=== PATIENT | female | born 1955 | race African-American/Black ===

== ENCOUNTER 2019-04-26 12:40 | Inpatient (IN) ==
[2019-04-26] MEDS ORDERED: 0.9 % Sodium Chloride 500 ML IVC ONE (12:52)
--- NOTE | 2019-04-26 12:59 | Emergency Department Note ---
Disposition Clinical Impression: Acute renal insufficiency, Dehydration, Hypokalemia, WENDY (acute kidney injury) Failure to thrive Qualifiers: Failure to thrive age range: in adult Qualified Code(s): R62.7 - Adult failure to thrive Malnutrition Qualifiers: Malnutrition type: unspecified type Qualified Code(s): E46 - Unspecified protein-calorie malnutrition Disposition: Admitted As Inpatient Condition: Fair Forms: ED Satisfaction Letter, Work/School Release Time of Disposition: 15:57 General Adult HPI - General Chief complaint: ED General Medical Stated complaint: Hypotension, malnutrition Time Seen by Provider: 04/26/19 12:44 Source: patient, family, EMS Mode of arrival: EMS Limitations: physical limitation Nursing Notes Reviewed: Yes Vital Signs Reviewed: Yes - History of Present Illness HPI Narrative: 64-year-old female with a past medical history of breast cancer status post post mastectomy, as well as head and neck cancer treated with surgery, chemotherapy, radiation. Patient was seen at the cancer center today for a 5-6 week follow-up and was found to be severely malnourished with an elevated heart rate and decreased blood pressure. Patient was sent here for further evaluation and t reatment. Patient states that nothing hurts her at this time. She is complaining of feeling very cold, and states that she eats probably twice a day. at bedside reports that he gives her TPN through her feeding tube only when she asks for it. Patient states that she has probably not been able to stand for several months now. She is denying fevers chills chest pain shortness of breath abdominal pain nausea vomiting diarrhea constipation. Pain Scale: 0 - Related Data Home Medications Medication Instructions Recorded Confirmed Folic Acid 1 mg PO DAILY 09/18/18 04/26/19 LORazepam [Ativan] 0.5 mg PO AD PRN 09/18/18 04/26/19 Previous Rx's Medication Instructions Recorded Anastrozole [Arimidex] 1 mg PO DAILY #90 tablet 02/15/18 Vitamin E (Dl,Tocopheryl Acet) 400 unit PO BID #60 cap 03/15/18 [Vitamin E] Omeprazole [PriLOSEC] 20 mg PO DAILY #30 capsule. 03/01/19 Levothyroxine [Synthroid] 75 mcg PO DAILY #30 tablet 03/07/19 Allergies Allergy/AdvReac Type Severity Reaction Status Date / Time No Known Allergies Allergy Verified 04/26/19 11:39 Review of Systems: In addition to that documented in the HPI above, the additional ROS was obtained: Constitutional: Denies fevers or chills Eyes: Denies vision changes ENMT: Denies sore throat CV: Denies chest pain Resp: Denies SOB GI: Denies vomiting or diarrhea : Denies painful urination MSK: Denies recent trauma Skin: Denies new rashes Neuro: Denies new numbness or tingling or weakness Endocrine: Reports weight loss Heme: Denies bleeding disorders Past Medical History - Past Medical History Attestation: Yes The following information was validated with the patient. Medical history: Reports: cancer Surgical history: Reports: no surgical history Psychiatric history: Reports: anxiety - Social History Smoking Status: Current every day smoker Smokeless Tobacco Status: No Alcohol use: Reports: heavy Drug use: Reports: none Physical Exam General: A&O x 3. No acute distress. Thin, cachetic female. Head: atraumatic, normocephalic. ENT: No conjunctival injection, no scleral icterus. PERRLA. EOMI. Oropharynx non- erythematous. mucous membranes moist. Neuro: No focal deficits, no speech deficit, no facial droop, mentating well. BUE/BLE Str 5/5. Pulm: Lungs CTAB A/P. No wheezes, rales, ronchi. Cardio: Tachycardia. Chest not tender to palpation. Abd: Soft, non-distended. Normoactive bowel sounds. Non-tender to palpation. No guarding. Non rigid. Extremities: Radial pulses 2+ rosa, dorsalis pedis/posterior tibialis 2+ rosa. No LE edema. No cyanosis, clubbing. Skin: warm, dry, intact. No rashes. Psych: Appropriate mood and affect. Answers questions appropriately. Cooperative with exam. - General Limitations: physical limitation General appearance: alert Course Vital Signs Temperature 96.8 F L 04/26/19 12:43 Pulse Rate 98 04/26/19 12:43 Respiratory Rate 16 04/26/19 12:43 Blood Pressure 81/60 04/26/19 12:43 O2 Sat by Pulse Oximetry 100 04/26/19 12:43 Temperature 98.5 F 04/26/19 16:18 Pulse Rate 86 04/26/19 17:45 Respiratory Rate 18 04/26/19 17:45 Blood Pressure 77/57 04/26/19 17:45 O2 Sat by Pulse Oximetry 100 04/26/19 17:45 Oxygen Delivery Oxygen Delivery Room Air Medical Decision Making - MDM Narrative Medical decision making narrative: 64-year-old female presents with significant comorbidities including malnut rition and cancer treatment with concern for electrolyte abnormalities as well as cardiac risk factors. Basic lab work to include CBC, BMP, phosphorus, magnesium, liver function panel as well as EKG, chest x-ray, urinalysis will be ordered. Concern exists for severe malnutrition as well as cardiac arrhythmia. Lab work revealed hypokalemia, elevated phosphorus at 5.1, creatinine was elevated at 2.4 which is a significant increase over her baseline and was thought to be related to dehydration, EKG concerning for sinus tachycardia, it was thought the patient would benefit from further inpatient treatment and workup as well as a social work consult. The patient was given potassium through her IV while in the department as well as IV fluids. Patient was given a banana bag while in the department with concern for her alcoholism. Patient was admitted to the hospitalist Dr. Summers who agreed to accept the patient to his service. Results of the workup including any imaging and/or labwork was shared with the family at bedside. Family was given an opportunity to ask questions at bedside and all of their concerns were addressed. Family verbalized understanding and agreement with plan of care. Pt remained stable while in the department. - Medical Records Medical records reviewed: Yes I reviewed the patient's medical records. - Lab Data Lab results reviewed: Yes I reviewed the patient's lab results. Result diagrams: 04/26/19 14:03 04/26/19 14:03 Lab Results 04/26/19 04/26/19 Range/Units 14:03 14:03 WBC 6.7 D (4.3-11.1) K/mcL RBC 2.91 L (3.82-4.97) M/mcL Hgb 10.7 L (11.5-15.4) g/dL Hct 31.8 L (35.3-44.9) % MCV 109.3 H (83.0-100.0) fL MCH 36.8 H (28.0-33.3) pg MCHC 33.6 (31.6-35.5) g/dL RDW 13.2 (11.5-14.5) % Plt Count 210 (140-400) K/mcL MPV 10.8 (9.4-12.4) fL Immature Gran % 0.3 (0-4) % Seg Neutrophils % 80.4 % Lymphocytes % 13.0 % Monocytes % 5.7 % Eosinophils % 0.3 % Basophils % 0.3 % Neutrophils # 5.4 (1.6-8.9) K/mcL Lymphocytes # 0.9 (0.6-4.6) K/mcL Monocytes # 0.4 (0.0-1.3) K/mcL Eosinophils # 0.0 (0.0-0.6) K/mcL Basophils # 0.0 (0.0-0.2) K/mcL Sodium 133 L (136-145) mEq/L Potassium 3.1 L (3.5-5.1) mEq/L Chloride 98 (98-107) mEq/L Carbon Dioxide 21 L (23-29) mEq/L BUN 44 H (8-23) mg/dL Creatinine 2.46 H (0.60-1.20) mg/dL Est GFR ( Amer) 24 L (> 60) Est GFR (Non-Af Amer) 20 L (> 60) BUN/Creatinine Ratio 18 (6-26) Glucose 83 (70-105) mg/dL Calculated Osmolality 286 (280-300) Calcium 7.9 L (8.6-10.3) mg/dL Phosphorus 5.5 H (2.7-4.5) mg/dL Magnesium 1.8 (1.6-2.6) mg/dL Total Bilirubin 0.6 (0.3-1.0) mg/dL AST 22 (13-39) Units/L ALT 13 (7-52) Units/L Alkaline Phosphatase 76 (34-104) Units/L Troponin I < 0.03 (< 0.04) ng/mL Serum Total Protein 5.3 L (6.4-8.9) g/dL Albumin 2.1 L (3.5-5.7) g/dL Globulin 3.2 (2.4-3.5) g/dL Albumin/Globulin Ratio 0.7 L (1.1-2.2) - Radiology Data Radiology results reviewed: Yes I reviewed the patient's radiology results. Chest X-Ray 04/26/19 12:48 IMPRESSION: 1. No acute cardiopulmonary disease. 2. COPD. D/ / Irene Fuller MD / Irene Fuller MD Interpreting Provider: Irene Fuller MD - EKG Data EKG #1 EKG attestation: Yes I reviewed and interpreted this EKG. EKG results narrative: Heart rate 100, rhythm sinus tachycardia, axis normal. VT 138, QRS 73, QTC 42. No evidence of ST elevation or depression when compared with previous study dated 06/30/2000 the new study differs in rate and amplitude of QRS complexes. Attestation Statement - Attestation Attestation: I, Elmer Duque DO, examined this patient [id number] and my medical decision-making was reviewed with Dr. Caren Mckinley, Resident Physician. I agree with the documented findings, disposition and treatment plan as described except to the extent set forth below. I personally supervised and was present for the panda/critical portions of the procedures completed by the resident doc umented below. Please see my progress notes for details.
--- NOTE | 2019-04-26 13:06 | Emergency Department Note ---
Disposition Clinical Impression: Acute renal insufficiency, Dehydration, Failure to thrive Disposition: Admitted As Inpatient Condition: Serious Forms: ED Satisfaction Letter, Work/School Release Time of Disposition: 15:56 General Adult HPI - General Stated complaint: Hypotension, malnutrition Time Seen by Provider: 04/26/19 12:44 Source: patient, family, EMS Mode of arrival: EMS Limitations: physical limitation - History of Present Illness Pain Scale: 0 - Related Data Home Medications Medication Instructions Recorded Confirmed Folic Acid 1 mg PO DAILY 09/18/18 04/26/19 LORazepam [Ativan] 0.5 mg PO AD PRN 09/18/18 04/26/19 Previous Rx's Medication Instructions Recorded Anastrozole [Arimidex] 1 mg PO DAILY #90 tablet 02/15/18 Vitamin E (Dl,Tocopheryl Acet) 400 unit PO BID #60 cap 03/15/18 [Vitamin E] Omeprazole [PriLOSEC] 20 mg PO DAILY #30 capsule. 03/01/19 Levothyroxine [Synthroid] 75 mcg PO DAILY #30 tablet 03/07/19 Allergies Allergy/AdvReac Type Severity Reaction Status Date / Time No Known Allergies Allergy Verified 04/26/19 11:39 Past Medical History - Past Medical History Medical history: Reports: cancer Surgical history: Reports: no surgical history Psychiatric history: Reports: anxiety - Social History Smoking Status: Current every day smoker Smokeless Tobacco Status: No Alcohol use: Reports: heavy Drug use: Reports: none Physical Exam - General Limitations: physical limitation General appearance: alert Course Vital Signs Temperature 0 F L 04/26/19 12:43 Pulse Rate 98 04/26/19 12:43 Respiratory Rate 16 04/26/19 12:43 Blood Pressure 81/60 04/26/19 12:43 O2 Sat by Pulse Oximetry 100 04/26/19 12:43 Temperature 0 F L 04/26/19 12:43 Pulse Rate 88 04/26/19 13:43 Respiratory Rate 16 04/26/19 13:43 Blood Pressure 71/54 04/26/19 13:43 O2 Sat by Pulse Oximetry 100 04/26/19 13:43 Oxygen Delivery Oxygen Delivery Room Air Medical Decision Making - Lab Data Result diagrams: 04/26/19 14:03 04/26/19 14:03 Lab Results 04/26/19 04/26/19 Range/Units 14:03 14:03 WBC 6.7 D (4.3-11.1) K/mcL RBC 2.91 L (3.82-4.97) M/mcL Hgb 10.7 L (11.5-15.4) g/dL Hct 31.8 L (35.3-44.9) % MCV 109.3 H (83.0-100.0) fL MCH 36.8 H (28.0-33.3) pg MCHC 33.6 (31.6-35.5) g/dL RDW 13.2 (11.5-14.5) % Plt Count 210 (140-400) K/mcL MPV 10.8 (9.4-12.4) fL Immature Gran % 0.3 (0-4) % Seg Neutrophils % 80.4 % Lymphocytes % 13.0 % Monocytes % 5.7 % Eosinophils % 0.3 % Basophils % 0.3 % Neutrophils # 5.4 (1.6-8.9) K/mcL Lymphocytes # 0.9 (0.6-4.6) K/mcL Monocytes # 0.4 (0.0-1.3) K/mcL Eosinophils # 0.0 (0.0-0.6) K/mcL Basophils # 0.0 (0.0-0.2) K/mcL Sodium 133 L (136-145) mEq/L Potassium 3.1 L (3.5-5.1) mEq/L Chloride 98 (98-107) mEq/L Carbon Dioxide 21 L (23-29) mEq/L BUN 44 H (8-23) mg/dL Creatinine 2.46 H (0.60-1.20) mg/dL Est GFR ( Amer) 24 L (> 60) Est GFR (Non-Af Amer) 20 L (> 60) BUN/Creatinine Ratio 18 (6-26) Glucose 83 (70-105) mg/dL Calculated Osmolality 286 (280-300) Calcium 7.9 L (8.6-10.3) mg/dL Phosphorus 5.5 H (2.7-4.5) mg/dL Magnesium 1.8 (1.6-2.6) mg/dL Total Bilirubin 0.6 (0.3-1.0) mg/dL AST 22 (13-39) Units/L ALT 13 (7-52) Units/L Alkaline Phosphatase 76 (34-104) Units/L Troponin I < 0.03 (< 0.04) ng/mL Serum Total Protein 5.3 L (6.4-8.9) g/dL Albumin 2.1 L (3.5-5.7) g/dL Globulin 3.2 (2.4-3.5) g/dL Albumin/Globulin Ratio 0.7 L (1.1-2.2) Attestation Statement - Attestation Attestation: I, Elmer Duque DO, examined this patient [id number] and my medical decision-making was reviewed with Dr. Caren Mckinley, Resident Physician. I agree with the documented findings, disposition and treatment plan as described except to the extent set forth below. I personally supervised and was present for the panda/critical portions of the procedures completed by the resident documented below. Please see my progress notes for details. 64-year-old female presents emergency room from the [facility] for evaluation of generalized malaise, fair to thrive, malnourishment. Patient has no neck and head and breast cancer. She received treatment. She has been cancer free for over a year at this time. She does have a PEG tube in place secondary to bleeding related issues after the cancer treatment. She currently is denying any chest pain shortness of breath fevers or chills. She does not have any nausea vomiting or diarrhea. Denies any headache or vision change. She does n ot receive TPN or feeding tube supplementation unless she asks for it. Patient does not typically eat very much throughout the day. Patient was seen at the cancer Center today for a follow-up evaluation. They were concerned about her decline in weight and recommended she come to the emergency room. Patient is otherwise clinically stable. Her lungs are clear her heart is regular. Her vital signs are reviewed. She is very thin in full. Mucous membranes are dry. Head is atraumatic. Pupils are round reactive. Lungs are clear heart is regular. Abdomen is soft. G-tube is in place and showing no acute signs of malposition or trauma. Extremities otherwise normal. Screening evaluation will be completed. Fluids will be given. Chest x-ray will be ordered. Disposition to be determined once full workup and treatment course I been established. Patient will be monitored here in the emergency department to this treatment course is completed. EKG is reviewed by myself in documented by the resident physician. See detailed documentation of the physical exam, medical intervention, decision-making and disposition in the resident physician's note. No critical care applied the patient's treatment course at this time. 1500 Patient is found to have acute renal insufficiency as well as hypokalemia. This is all consistent with nutritional related issues. Because the generalized malaise, as well as her decline in health, the patient will be admitted for psychotherapist social worker evaluation, possible placement, possible progression of care. Patient is aware of this and will be admitted at this time. Hospitalist has been paged [phone] Patient was discussed and reviewed with the hospitalist Dr. Summers. No other recommendations or concerns at this time. Attempts were made to discuss CODE STATUS with the patient. The family does not quite understand exactly what or asking this time. They continued to express that she is only here for fluids and nutrition. They did not understand was asking by the patient's heart were to stop or she were to stop breathing what type of intervention. Advised. Patient will have further discussion with this in the hospital setting after the remainder of the treatment course has been completed. Appears to be profound dehydration, acute renal insufficiency and failure to thrive. Patient is otherwise stable at the time of admission. We will monitor here in emergency department until the admission process is completed
[2019-04-26 14:31] LABS: Basophils % 0.3 %; Eosinophils % 0.3 %; Hematocrit 31.8 % (35.3-44.9); Hemoglobin 10.7 g/dL (11.5-15.4); Immature Granulocytes % 0.3 % (0-4); Lymphocytes # 0.9 K/mcL (0.6-4.6); Mean Corpuscular HGB Conc 33.6 g/dL (31.6-35.5); Mean Corpuscular Hemoglobin 36.8 pg (28.0-33.3); Mean Corpuscular Volume 109.3 fL (83.0-100.0); Mean Platelet Volume 10.8 fL (9.4-12.4); Monocytes # 0.4 K/mcL (0.0-1.3); Monocytes % 5.7 %; Neutrophils # 5.4 K/mcL (1.6-8.9); Platelet Count 210 K/mcL (140-400); Red Blood Count 2.91 M/mcL (3.82-4.97); Red Cell Distribution Width 13.2 % (11.5-14.5); Segmented Neutrophils % 80.4 %; White Blood Count 6.7 K/mcL (4.3-11.1)
[2019-04-26 14:57] LABS: Alanine Aminotransferase 13 Units/L (7-52); Albumin 2.1 g/dL (3.5-5.7); Albumin/Globulin Ratio 0.7 (1.1-2.2); Alkaline Phosphatase 76 Units/L (34-104); Aspartate Amino Transferase 22 Units/L (13-39); BUN/Creatinine Ratio 18 (6-26); Bilirubin,Total 0.6 mg/dL (0.3-1.0); Blood Urea Nitrogen 44 mg/dL (8-23); Calcium 7.9 mg/dL (8.6-10.3); Carbon Dioxide 21 mEq/L (23-29); Chloride 98 mEq/L (98-107); Globulin 3.2 g/dL (2.4-3.5); Glucose 83 mg/dL (70-105); Magnesium 1.8 mg/dL (1.6-2.6); Osmolality,Calculated 286 (280-300); Phosphorous 5.5 mg/dL (2.7-4.5); Potassium 3.1 mEq/L (3.5-5.1); Sodium 133 mEq/L (136-145); Total Protein 5.3 g/dL (6.4-8.9); Troponin I < 0.03 ng/mL (< 0.04); eGFR For African Americans 24 (> 60); eGFR For Non-African Americans 20 (> 60)
[2019-04-26] MEDS ORDERED: Potassium Chloride 40 MEQ, Lidocaine 1% 2 ML in D5% in Water 500 ML IVPB ONE (14:59)
[2019-04-26] MEDS ORDERED: 0.9 % Sodium Chloride 1,000 ML IVC ONE (15:00)
[2019-04-26] MEDS ORDERED: Thiamine (B-1) 100 MG in D5% in Water 50 ML IVPB ONE (15:59)
[2019-04-26] MEDS ORDERED: Folic Acid 1 MG in D5% in Water 50 ML IVPB ONE (15:59)
[2019-04-26] MEDS ORDERED: Naloxone 0.4 MG/ML INJ IVP PRN (17:42)
--- NOTE | 2019-04-26 17:53 | Internal Med History&Physical ---
Date of Encounter: 04/26/19 Time of Encounter: 15:00 Internal Medicine - H&P: HPI Chief complaint: Weakness Admitted From: Home Plans for Post Hospital Care: Home History of present illness: Ms. Ribeiro is a 64 year old female with history of breast cancer status post mastectomy, head and neck cancer treated with surgery, chemotherapy and radiation. Last chemotherapy was more than a year ago who came in to the hosp ital with her due to generalized weakness that has been going on for more than 2 weeks As per the . Patient was put historian and most of the history was obtained from her . Patient had poor oral intake for a few months with no identifiable cause or reason. Patient denied chest pain, shortness of breath, fever, chills, night sweats, abdominal pain, urinary or bowel changes. She had no recent sick contact. She does not feel like she wants to eat. As per the , patient was hiding food on him. He used to "for her and she is to cover it with a Towel and hide it on him. Upon presentation, patient was hypotensive however she was afebrile. Her blood work was significant for hyponatremia, hypokalemia and acute kidney injury. She also has microcytic anemia. Patient was given IV fluids and was admitted to the floor for further management Past Med Surg Social Fam HX - Past Medical History Medical history: cancer Additional medical history: LARYNGEAL CANCER, BREAST CANCER. SMOKER. CANCER TREATMENT Psychiatric history: anxiety - Past Surgical History Surgical History: no surgical history Additional surgical history: LEFT BREAST CYST EXCISION. G-TUBE. Bilateral Mastectomy - Social History Smoking Status: Current every day smoker Smokeless Tobacco Status: No Alcohol use: heavy Drug use: none - Additional Family History Additional family history: Patient has no family history of cancer or malignancies. Internal Medicine - H&P: Meds Anastrozole [Arimidex] 1 mg PO DAILY #90 tablet 02/15/18 [Rx] Vitamin E (Dl,Tocopheryl Acet) [Vitamin E] 400 unit PO BID #60 cap 03/15/18 [Rx] Folic Acid 1 mg PO DAILY 09/18/18 [History] LORazepam [Ativan] 0.5 mg PO AD PRN 09/18/18 [History] Omeprazole [PriLOSEC] 20 mg PO DAILY #30 capsule. 03/01/19 [Rx] Levothyroxine [Synthroid] 75 mcg PO DAILY #30 tablet 03/07/19 [Rx] Allergy/AdvReac Type Severity Reaction Status Date / Time No Known Allergies Allergy Verified 04/26/19 11:39 All Systems PM: A 10-system review of systems was performed and is negative for pertinent fi ndings except as documented above in the HPI. - Constitutional Vitals: Temp Pulse Resp BP Pulse Ox 98.5 F 86 18 77/57 100 04/26/19 16:18 04/26/19 17:45 04/26/19 17:45 04/26/19 17:45 04/26/19 17:45 General appearance: Present: cachectic, A&O X 3 Exam: Head: Atraumatic, normal inspection, normocephalic. Eye: EOMI, PERRLA, no scleral icterus noted. ENT: Mucous membranes moist. No odontogenic infection noted. Large amount of oral secretions noted. Neck: Normal inspection, no meningismus. Respiratory: No respiratory distress, rhonchi, or wheezes noted. Cardiovascular: Regular rate and regular rhythm, S1 and S2 audible. No murmurs, rubs, or gallops. GI: Soft, nondistended, normal bowel sounds. Extremities:No joint swelling, pedal edema, or tenderness noted. Neurological: Alert, oriented 3, no focal deficits. Psychiatric: normal affect, normal mood. Skin: Dry,. Normal color. No rashes. Internal Med - H&P Results - Labs CBC & Chem 7: 04/26/19 14:03 04/26/19 14:03 Labs: Short CBC 04/26/19 Range/Units 14:03 WBC 6.7 D (4.3-11.1) K/mcL Hgb 10.7 L (11.5-15.4) g/dL Hct 31.8 L (35.3-44.9) % Plt Count 210 (140-400) K/mcL Neutrophils # 5.4 (1.6-8.9) K/mcL BMP 04/26/19 14:03 Sodium 133 L Potassium 3.1 L Chloride 98 Carbon Dioxide 21 L BUN 44 H Creatinine 2.46 H Glucose 83 Calcium 7.9 L Cardiac Enzymes 04/26/19 Range/Units 14:03 Troponin I < 0.03 (< 0.04) ng/mL Liver Function 04/26/19 Range/Units 14:03 Total Bilirubin 0.6 (0.3-1.0) mg/dL AST 22 (13-39) Units/L ALT 13 (7-52) Units/L Alkaline Phosphatase 76 (34-104) Units/L Albumin 2.1 L (3.5-5.7) g/dL - Impressions ITS Impressions Chest X-Ray 04/26/19 12:48 IMPRESSION: 1. No acute cardiopulmonary disease. 2. COPD. D/ / Irene Fuller MD / Irene Fuller MD Interpreting Provider: Ireen Fuller MD - Diagnostic Studies Chest x-ray Status: image reviewed by me (Normal findings) - Assessment and Plan (1) WENDY (acute kidney injury) Current Visit: Yes Status: Acute (2) Dehydration Current Visit: Yes Status: Acute (3) Failure to thrive Current Visit: Yes Status: Acute Qualifiers: Failure to thrive age range: in adult Qualified Code(s): R62.7 - Adult failure to thrive (4) Malnutrition Current Visit: Yes Status: Acute Qualifiers: Malnutrition type: protein-calorie malnutrition Protein-calorie malnutrition severity: unspecified severity Qualified Code(s): E46 - Unspecified protein-calorie malnutrition (5) Hypokalemia Current Visit: Yes Status: Acute (6) Anemia Current Visit: No Status: Acute Qualifiers: Anemia type: unspecified type Qualified Code(s): D64.9 - Anemia, unspecified (7) Bilateral breast cancer Current Visit: No Status: Acute Qualifiers: Breast location: unspecified site of breast Estrogen receptor status: positive Patient sex: female Qualified Code(s): C50.911 - Malignant neoplasm of unspecified site of right female breast; C50.912 - Malignant neoplasm of unspecified site of left female breast; Z17.0 - Estrogen receptor positive status [ER+] (8) Oropharyngeal cancer Current Visit: No Status: Acute - Summary of Assessment and Plan Summary of Assessment and Plan: 64-year-old female with history of breast cancer status post mastectomy and oropharynx and cancer status post surgery, chemotherapy who was came into the hospital with her due to generalized weakness. As per the patient had poor oral intake for few weeks. Her symptoms are managed as following Failure to thrive: - Patient does not have the appetite eat. - Chest x-ray is negative, UA is ordered. Patient is afebrile and has no le ukocytosis. - Her blood pressure was low at presentation, improved with IV fluids. - We will start her on Ringer lactate at rate of 125 mL, encourage oral intake. - Ordered BMP, by mouth 4, magnesium level for tomorrow. WENDY: - Cr bL ~ 1, TODAY IS 2.4. - BMP for tomorrow, monitor kidneys function, monitor input and output, continue IV fluids Hyponatremia: - Secondary to above, management as per above Hypokalemia: - Secondary to above, patient received oral replacement Macrocytic anemia: - We will check folic acid, TSH, vitamin B12 and ferritin level. History of breast cancer status post mastectomy: Continue home medication History of oropharyngeal cancer status post chemotherapy Full code Regular diet Heparin subcutaneous - Time Spent With Patient Total time spent is greater than 50% in coordination of care (as documented) at patient's floor/unit and/or counseling patient:
[2019-04-26 18:52] LABS: Thyroid Stimulating Hormone 22.783 mcIU/mL (0.340-5.600)
[2019-04-26] MEDS: *HR* Heparin 5,000 UNIT/ML VIAL SQ SCH (22:09)
[2019-04-26] MEDS: Ringers Solution, Lactated 1,000 ML IVC SCH (22:10)
[2019-04-27 02:26] LABS: Calcium 7.5 mg/dL (8.6-10.3); Magnesium 2.3 mg/dL (1.6-2.6); Phosphorous 4.4 mg/dL (2.7-4.5); Potassium 3.6 mEq/L (3.5-5.1)
[2019-04-27] MEDS: *HR* Heparin 5,000 UNIT/ML VIAL SQ SCH ×2 (06:22→18:14)
[2019-04-27] MEDS: Ringers Solution, Lactated 1,000 ML IVC SCH (06:23)
[2019-04-27] MEDS: 0.9 % Sodium Chloride 1,000 ML IVC SCH ×3 (09:24→23:03)
[2019-04-27] MEDS ORDERED: Folic Acid 1 MG in D5% in Water 50 ML IVPB SCH (11:30)
[2019-04-27] MEDS ORDERED: *HR* LORazepam 0.5 MG TABLET PO PRN (13:03)
--- NOTE | 2019-04-27 13:06 | Internal Med Progress Note ---
Hospitalist Progress Note - Encounter Date of Encounter: 04/27/19 Time of Encounter: 10:00 - Subjective Interval History: No major events overnight. Patient was seen this a.m. sHe denied fever, chills or night sweats. SHe has no nausea, vomiting or abdominal pain. Patient denied chest pain, shortness of breath or palpitation. - Exam Vitals: Temp Pulse Resp BP Pulse Ox 98.2 F 75 16 78/58 99 04/27/19 11:18 04/27/19 11:18 04/27/19 11:18 04/27/19 11:18 04/27/19 11:18 Exam: Gen: She is alert and oriented, cachectic Head: Atraumatic, normal inspection, normocephalic. Eye: EOMI, PERRLA, no scleral icterus noted. ENT: Mucous membranes moist. No odontogenic infection noted. Large amount of oral secretions noted. Neck: Normal inspection, no meningismus. Respiratory: No respiratory distress, rhonchi, or wheezes noted. Cardiovascular: Regular rate and regular rhythm, S1 and S2 audible. No murmurs, rubs, or gallops. GI: Soft, nondistended, normal bowel sounds. peg Tube in place. Extremities:No joint swelling, pedal edema, or tenderness noted. Neurological: Alert, oriented 3, no focal deficits. Psychiatric: normal affect, normal mood. Skin: Dry,. Normal color. No rashes. - Assessment and Plan (1) WENDY (acute kidney injury) Current Visit: Yes Status: Acute (2) Dehydration Current Visit: Yes Status: Acute (3) Failure to thrive Current Visit: Yes Status: Acute (4) Malnutrition Current Visit: Yes Status: Acute (5) Hypokalemia Current Visit: Yes Status: Resolved (6) Anemia Current Visit: Yes Status: Acute (7) Bilateral breast cancer Current Visit: No Status: Chronic (8) Oropharyngeal cancer Current Visit: No Status: Chronic - Summary of Assessment and Plan Summary of Assessment and Plan: 64-year-old female with history of breast cancer status post mastectomy and oropharynx cancer status post surgery, chemotherapy, gastric PEG tube, hypothyroidism who was came into the hospital with her due to generalized weakness. As per the patient had poor oral intake for few weeks. Her symptoms are managed as following Failure to thrive: - Patient does not have the appetite eat. - Chest x-ray is negative, UA is ordered. Patient is afebrile and has no leukocytosis. - Her blood pressure was low at presentation, improved with IV fluids. - continue NS on 125 mL, encourage oral intake. - Ordered BMP. - discussed with boat carpenter, will try intermittent PEG tube feeding. - If no improvement, we will consult palliative team. ETOH abuse: - Extension Course Coordinator discussed with oncology boat carpenter that patient used to drink 3 cups a vodka a day. - no signs of withdrawl. will monitor. - continue thiamine and folic acid. WENDY: - Cr bL ~ 1, today is 2.3. - ordered BMP for tomorrow, monitor kidneys function, bladder scan with 99 ml only, monitor input and output, continue IV fluids Hyponatremia: - Secondary to above, management as per above Hypokalemia: Resolved Hypothyroidism: - TSH is 22, on levothyroxine 75 mcg at home. Unsure about compliance. - We will increase her levothyroxine to 100 mcg daily. Macrocytic anemia: - Ferritin, b12 and folic acid are normal. - likely 2/2 hypothyroidism. History of breast cancer status post mastectomy: Continue home medication History of oropharyngeal cancer status post chemotherapy Full code Regular diet Heparin SC Disposition: BMAT 1, needs placement. will discuss with social service. I reviewed independently all laboratory workup, pertinent images including x- rays and CT scans. I also reviewed independently and EKGs and my findings are in the body of my assessment and plan. I ordered the laboratory workup and images myself. I discussed finding with patient's, their families, RN's and consultants involved in the care of the patient. - Time Spent with Patient Total time spent is greater than 50% in coordination of care (as documented) at patient's floor/unit and/or counseling patient: Plan of Care Discussed with: patient Internal Medicine: Result - Labs CBC & Chem 7: 04/26/19 14:03 04/27/19 01:50 Labs: Short CBC 04/26/19 Range/Units 14:03 WBC 6.7 D (4.3-11.1) K/mcL Hgb 10.7 L (11.5-15.4) g/dL Hct 31.8 L (35.3-44.9) % Plt Count 210 (140-400) K/mcL Neutrophils # 5.4 (1.6-8.9) K/mcL BMP 04/26/19 04/27/19 14:03 01:50 Sodium 133 L 132 L Potassium 3.1 L 3.6 Chloride 98 100 Carbon Dioxide 21 L 24 BUN 44 H 40 H Creatinine 2.46 H 2.31 H Glucose 83 98 Calcium 7.9 L 7.5 L Cardiac Enzymes 04/26/19 Range/Units 14:03 Troponin I < 0.03 (< 0.04) ng/mL Liver Function 04/26/19 Range/Units 14:03 Total Bilirubin 0.6 (0.3-1.0) mg/dL AST 22 (13-39) Units/L ALT 13 (7-52) Units/L Alkaline Phosphatase 76 (34-104) Units/L Albumin 2.1 L (3.5-5.7) g/dL - Impressions Impressions Chest X-Ray 04/26/19 12:48 IMPRESSION: 1. No acute cardiopulmonary disease. 2. COPD. D/ / Irene Fuller MD / Irene Fuller MD Interpreting Provider: Irene Fuller MD Consult Discharge Plan - Plan Referrals: NONE,PCP [Primary Care Provider] - (3) Failure to thrive Qualifiers: Failure to thrive age range: in adult Qualified Code(s): R62.7 - Adult failure to thrive (4) Malnutrition Qualifiers: Malnutrition type: unspecified type Qualified Code(s): E46 - Unspecified protein-calorie malnutrition (6) Anemia Qualifiers: Anemia type: unspecified type Qualified Code(s): D64.9 - Anemia, unspecified (7) Bilateral breast cancer Qualifiers: Qualified Code(s): C50.911 - Malignant neoplasm of unspecified site of right female breast
[2019-04-27] MEDS: Thiamine (B-1) 100 MG in D5% in Water 50 ML IVPB SCH (13:07)
[2019-04-27] MEDS: Anastrozole 1 MG TABLET PO SCH (13:36)
[2019-04-27] MEDS: Vitamin E 200 UNIT (90MG) CAPSULE PO SCH (20:32)
[2019-04-27] MEDS ORDERED: *HR* LORazepam 2 MG/ML VIAL IVP PRN ×3 (20:39)
[2019-04-28] MEDS: *HR* Heparin 5,000 UNIT/ML VIAL SQ SCH ×2 (06:03→17:16)
[2019-04-28] MEDS: 0.9 % Sodium Chloride 1,000 ML IVC SCH ×4 (06:07→23:00)
[2019-04-28] MEDS ORDERED: Levothyroxine 25 MCG TABLET PO SCH (06:30)
[2019-04-28 07:28] LABS: Hematocrit 27.4 % (35.3-44.9); Hemoglobin 9.4 g/dL (11.5-15.4); Mean Corpuscular HGB Conc 34.3 g/dL (31.6-35.5); Mean Corpuscular Hemoglobin 38.4 pg (28.0-33.3); Mean Corpuscular Volume 111.8 fL (83.0-100.0); Mean Platelet Volume 10.6 fL (9.4-12.4); Platelet Count 160 K/mcL (140-400); Red Blood Count 2.45 M/mcL (3.82-4.97); Red Cell Distribution Width 13.2 % (11.5-14.5)
[2019-04-28 07:47] LABS: Calcium 7.3 mg/dL (8.6-10.3); Potassium 2.9 mEq/L (3.5-5.1)
[2019-04-28] MEDS ORDERED: Potassium Chloride 40 MEQ, Lidocaine 1% 2 ML in D5% in Water 500 ML IVPB ONE (08:12)
[2019-04-28] MEDS: Thiamine (B-1) 100 MG in D5% in Water 50 ML IVPB SCH (08:23)
[2019-04-28] MEDS: Vitamin E 200 UNIT (90MG) CAPSULE PO SCH ×3 (08:27→20:35)
[2019-04-28] MEDS: Anastrozole 1 MG TABLET PO SCH ×2 (08:27→09:51)
[2019-04-28] MEDS: Folic Acid 1 MG in D5% in Water 50 ML IVPB SCH (09:45)
--- NOTE | 2019-04-28 13:35 | Internal Med Progress Note ---
Hospitalist Progress Note - Encounter Date of Encounter: 04/28/19 Time of Encounter: 11:00 - Subjective Interval History: Patient was seen this a.m. She had nausea and vomited twice as per the nurse. She could not tolerate bolus of feeding tube and the nurse also reported diarrhea. Patient denied abdominal pain, fever or chills. - Exam Vitals: Temp Pulse Resp BP Pulse Ox 98.1 F 75 18 91/68 100 04/28/19 10:46 04/28/19 10:46 04/28/19 10:46 04/28/19 10:46 04/28/19 10:46 Exam: Gen: She is alert and oriented, cachectic, mild distress. Head: Atraumatic, normal inspection, normocephalic. Eye: EOMI, PERRLA, no scleral icterus noted. ENT: Mucous membranes moist. No odontogenic infection noted. Large amount of oral secretions noted. Neck: Normal inspection, no meningismus. Respiratory: No respiratory distress, rhonchi, or wheezes noted. Cardiovascular: Regular rate and regular rhythm, S1 and S2 audible. No murmurs, rubs, or gallops. GI: Soft, nondistended, normal bowel sounds. peg Tube in place. Extremities:No joint swelling, pedal edema, or tenderness noted. Neurological: Alert, oriented 3, no focal deficits. Psychiatric: normal affect, normal mood. Skin: Dry,. Normal color. No rashes. - Assessment and Plan (1) WENDY (acute kidney injury) Current Visit: Yes Status: Acute (2) Dehydration Current Visit: Yes Status: Acute (3) Failure to thrive Current Visit: Yes Status: Acute (4) Malnutrition Current Visit: Yes Status: Acute (5) Hypokalemia Current Visit: Yes Status: Acute (6) Anemia Current Visit: Yes Status: Acute (7) Bilateral breast cancer Current Visit: No Status: Chronic (8) Oropharyngeal cancer Current Visit: No Status: Chronic - Summary of Assessment and Plan Summary of Assessment and Plan: 64-year-old female with history of breast cancer status post mastectomy and oropharynx cancer status post surgery, chemotherapy, gastric PEG tube, hypothyroidism who was came into the hospital with her due to generalized weakness. As per the patient had poor oral intake for few weeks. Her symptoms are managed as following Failure to thrive: - Patient does not have the appetite eat. - Chest x-ray is negative, UA/UC ordered. Patient is afebrile and has no leukocytosis. - Her blood pressure was low at presentation, improved with IV fluids. - continue NS on 125 mL, encourage oral intake. - Ordered BMP. - Patient couldn't tolerate small boluses of tube feeds, will try small infusion of tube feeds 10ml/Hr and check residuals later on. D/W RN - palliative team consult placed to discuss GOC and possible Hospice option, discussed that with her . ETOH abuse: - General Passenger Agent discussed with oncology financial brokers that patient used to drink 3 cups a vodka a day. - no signs of withdrawl. scored 0 on CIWA - continue thiamine and folic acid. WENDY: improving - Cr bL ~ 1, today is 1.7. - ordered BMP for tomorrow, monitor kidneys function, bladder scan with 214 ml only, monitor input and output, continue IV fluids Hyponatremia: resolved Hypokalemia: Resolved Hypothyroidism: - TSH is 22, on levothyroxine 75 mcg at home. Unsure about compliance. - We will increase her levothyroxine to 100 mcg daily. Macrocytic anemia: - Ferritin, b12 and folic acid are normal. - likely 2/2 hypothyroidism. History of breast cancer status post mastectomy: Continue home medication History of oropharyngeal cancer status post chemotherapy Full code Regular diet Heparin SC Disposition: BMAT 1, needs placement. will discuss with social service. - Time Spent with Patient Total time spent is greater than 50% in coordination of care (as documented) at patient's floor/unit and/or counseling patient: Internal Medicine: Result - Labs CBC & Chem 7: 04/28/19 07:09 04/28/19 07:09 Labs: Short CBC 04/28/19 Range/Units 07:09 WBC 5.0 (4.3-11.1) K/mcL Hgb 9.4 L (11.5-15.4) g/dL Hct 27.4 L (35.3-44.9) % Plt Count 160 (140-400) K/mcL BMP 04/28/19 07:09 Sodium 135 L Potassium 2.9 L Chloride 108 H Carbon Dioxide 20 L BUN 34 H Creatinine 1.74 H Glucose 127 H Calcium 7.3 L Consult Discharge Plan - Plan Referrals: NONE,PCP [Primary Care Provider] - (3) Failure to thrive Qualifiers: Failure to thrive age range: in adult Qualified Code(s): R62.7 - Adult failure to thrive (4) Malnutrition Qualifiers: Malnutrition type: unspecified type Qualified Code(s): E46 - Unspecified protein-calorie malnutrition (6) Anemia Qualifiers: Anemia type: unspecified type Qualified Code(s): D64.9 - Anemia, unspecified (7) Bilateral breast cancer Qualifiers: Qualified Code(s): C50.911 - Malignant neoplasm of unspecified site of right female breast
[2019-04-28 14:08] LABS: Bilirubin,Urine Small (Negative); Blood,Urine Negative (Negative); Clarity,Urine Clear (Clear); Color,Urine Yellow (Yellow); Glucose,Urine (UA) Normal (Normal); Ketones,Urine Negative (Negative); Leukocyte Esterase,Urine Negative (Negative); Nitrite,Urine Negative (Negative); PH,Urine 5.5 pH Units (5.0-8.0); Protein,Urine Negative (Neg-Trace); Specific Gravity,Urine 1.014 (1.010-1.025); Urobilinogen,Urine Normal (Normal)
--- NOTE | 2019-04-28 18:25 | Electrocardiograph Report ---
[facility] Test Date: 2019-04-26 Pat Name: Ashley Ribeiro Department: EXAM23 Room: 2N08 Gender: F Brazing Furnace Feeder: : [id number] Requested By: Caren Mckinley Order Number: [id number] Reading MD: Dylan Neumann Measurements Intervals [place] Rate: 100 P: 73 DC: 138 QRS: 59 QRSD: 73 T: QT: 373 QTc: 482 Interpretive Statements Sinus tachycardia Abnormal lateral Q waves Anterior infarct, old Electronically Signed On 04-28-2019 18:23:44 EDT by Dylan Neumann
[2019-04-28] MEDS: Ondansetron 4 MG/2 ML VIAL IVP PRN (20:34)
[2019-04-29 04:14] LABS: Calcium 7.2 mg/dL (8.6-10.3); Magnesium 1.8 mg/dL (1.6-2.6)
[2019-04-29] MEDS: 0.9 % Sodium Chloride 1,000 ML IVC SCH (06:18)
[2019-04-29] MEDS: *HR* Heparin 5,000 UNIT/ML VIAL SQ SCH ×2 (06:20→17:14)
[2019-04-29] MEDS: Vitamin E 200 UNIT (90MG) CAPSULE PO SCH ×2 (07:48→20:46)
[2019-04-29] MEDS: Anastrozole 1 MG TABLET PO SCH (07:49)
[2019-04-29] MEDS ORDERED: Ringers Solution, Lactated 1,000 ML IVC SCH (08:15)
[2019-04-29] MEDS: Folic Acid 1 MG in D5% in Water 50 ML IVPB SCH (09:00)
[2019-04-29] MEDS: Thiamine (B-1) 100 MG in D5% in Water 50 ML IVPB SCH (10:05)
--- NOTE | 2019-04-29 10:31 | Palliative - Consult Note ---
Date of Encounter: 04/30/19 Time of Encounter: 17:15 - Assessment and Plan (1) Malnutrition Current Visit: Yes Status: Acute Assessment and plan: S/W fashion intern, Amelia Abraham, and they are following closely. Patient high risk for refeeding syndrome, and did not tolerate boluses after admission,, on trickle feeds. Plan is to increase by 10 ml every 12 hours. Will take a couple days to reach goal. Patient denies depression or need for antidepressant,, but open for appetite stimulant. Qualifiers: Malnutrition type: unspecified type Qualified Code(s): E46 - Unspecified protein-calorie malnutrition (2) Failure to thrive Current Visit: Yes Status: Acute Qualifiers: Failure to thrive age range: in adult Qualified Code(s): R62.7 - Adult failure to thrive (3) Counseling regarding advanced care planning and goals of care Current Visit: Yes Status: Acute Assessment and plan: Met with patient and her ex- and caregiver, Stephen. He states that they were legally , however, did get back together, but not remarried. They only had one son together and he 20 years ago. Discussed adv directives, and that if they are legally not and pt desires Stephen to make decisions if she is unable, the importance of HCPOA. They both acknowledged and we completed healthcare power of attorney at law, naming Stephen as primary, and did not want any alternates on this form. Copies provided to Stephen and placed on medical record. Discussed goals of care, patient does want to be compliant with nutrition, and wants to continue tube feedings. Stephen in agreement and discussed that he was not sure how to get supplies, and that he doesn't get feedings sent to house anymore. Wanted to know how he could get help with this. Discussed that he needs to meet with fashion intern and social work. He will be here at 1400 Tues, and will reach out to fashion intern in am and SW and see if they can speak with him when he arrives. Discussed options of short term rehab vs home health. She seems open to at least discuss. (4) Alcohol abuse Current Visit: No Status: Acute (5) Palliative care encounter Current Visit: Yes Status: Acute Palliative-CN HPI - Data of Consult Requesting Physician: Tay Berry Primary Care Provider: PCP NONE - Consult Narrative History of present illness: Ms. Ribeiro is a 64 year old female with a history of breast cancer s/p bilateral mastectomy, and head/neck cancer s/p treatment with surgery, chemo/radiation, who was at the [facility] center for f/u visit, when it was noted that she had dramatic weight loss, and electrolyte abnormalities and tachycardia that was concerning for life threatening malnutrition. She agreed to come to hospital and was found to have hyponatremia, hypokalemia, and WENDY. She was started on IV fluids. By chart review, she has had decreased intake for a couple of months, appears that she was "hiding food" from , and was only taking tube feeds when she wanted them. There are also reports she was using Vodka as well. After admission,, she was starting on bolus feeding, however, could not tolerate and had emesis. She has now been started on trickle feeds. Albumin 2.1, Total protein 5.3. She has had over 18% weight loss. Reviewed oncology history -She has not had any recurrence of her cancer, and last imaging was negative. She would not comply with Review of Systems this am, and kept repeating she was "cold", and would not answer most questions. No family was present. She is resting with eyes closed, curled up in bed on her right side. Appears in no distress. IV was leaking - informed primary nurse. She has TF infusing at 10ml/hr. CC: Tay Berry - Time Spent with Patient Time: Total time spent is greater than 50% in coordination of care (as documented) at patient's floor/unit and/or counseling patient: Past Med Surg Social Fam HX - Past Medical History Medical history: cancer Additional medical history: LARYNGEAL CANCER, BREAST CANCER. SMOKER. CANCER TREATMENT Psychiatric history: anxiety - Past Surgical History Surgical History: no surgical history Additional surgical history: LEFT BREAST CYST EXCISION. G-TUBE. Bilateral Mastectomy - Social History Smoking Status: Current every day smoker Smokeless Tobacco Status: No Alcohol use: heavy Drug use: none - Family History Father Hx Family Cancer: Yes (Chest) Medications and Allergies Anastrozole [Arimidex] 1 mg PO DAILY #90 tablet 02/15/18 [Rx] Vitamin E (Dl,Tocopheryl Acet) [Vitamin E] 400 unit PO BID #60 cap 03/15/18 [Rx] Folic Acid 1 mg PO DAILY 09/18/18 [History] Omeprazole [PriLOSEC] 20 mg PO DAILY #30 capsule. 03/01/19 [Rx] Levothyroxine [Synthroid] 75 mcg PO DAILY #30 tablet 03/07/19 [Rx] Allergy/AdvReac Type Severity Reaction Status Date / Time No Known Allergies Allergy Verified 04/26/19 11:39 ROS unobtainable: other (Patient refusing to answer ROS questioning) Palliative Care-Exam - Constitutional Vitals: Temp Pulse Resp BP Pulse Ox 97.6 F 113 18 117/88 95 04/29/19 08:01 04/29/19 08:01 04/29/19 08:01 04/29/19 08:01 04/29/19 08:01 General appearance: Present: no acute distress - Head Head Exam: Present: normal inspection, normocephalic - Respiratory Respiratory exam: Present: CTAB - Cardiovascular Cardiovascular exam: Present: +S1, +S2, tachycardia - GI/Abdominal Exam GI/Abdominal exam: Present: normal bowel sounds, soft additional comments: Feeding tube intact - Extremities Exam Additional comments: Muscle wasting noted, all extremities - Neurological Exam Neurological exam: Present: alert, oriented X3, strengths equal and symetr throughout - Psychiatric Psychiatric exam: Present: flat affect - Skin Skin exam: Present: dry, warm Internal Medicine - CN: Reslt - Labs CBC & Chem 7: 04/28/19 07:09 04/30/19 03:36 Labs: BMP 04/29/19 03:35 Sodium 137 Potassium 4.0 D Chloride 111 H Carbon Dioxide 18 L BUN 32 H Creatinine 1.46 H Glucose 115 H Calcium 7.2 L Urine 04/28/19 Range/Units 13:50 Urine Color Yellow (Yellow) Urine Clarity Clear (Clear) Urine pH 5.5 (5.0-8.0) pH Units Ur Specific [place] 1.014 (1.010-1.025) Urine Protein Negative (Neg-Trace) mg/dL Urine Glucose (UA) Normal (Normal) mg/dL Consult Discharge Plan - Plan Referrals: NONE,PCP [Primary Care Provider] - Palliative Quality Palliative Quality: Screen for Code Status: NA (Awaiting family for goals of care discussion), Screen for Goals of Care: NA, Screen for Pain: Yes, If Pain Regimen Started, Initiate Bowel Regimen: NA, Screen for Nausea/Vomitting: Yes Code Status: 04/26/19 17:42 Resuscitation Status: Active [RES] Routine Comment: Resuscitation Status: Full Code
--- NOTE | 2019-04-29 12:36 | Internal Med Progress Note ---
Hospitalist Progress Note - Encounter Date of Encounter: 04/29/19 Time of Encounter: 10:00 - Subjective Interval History: No major events overnight. Patient was seen this a.m. SHe denied fever, chills or night sweats. She was nauseous as well this morning however she denied any emesis or abdominal pain. Patient denied chest pain, shortness of breath or palpitation. - Exam Vitals: Temp Pulse Resp BP Pulse Ox 97.9 F 102 18 107/78 97 04/29/19 11:14 04/29/19 11:14 04/29/19 11:14 04/29/19 11:14 04/29/19 11:14 Exam: Gen: She is alert and oriented, cachectic, no distress. Head: Atraumatic, . Temporal muscle wasting. Eye: EOMI, PERRLA, no scleral icterus noted. ENT: Mucous membranes moist. No odontogenic infection noted. Large amount of oral secretions noted. Neck: Normal inspection, Respiratory: No respiratory distress, rhonchi, or wheezes noted. Cardiovascular: Regular rate and regular rhythm, S1 and S2 audible. No murmurs, rubs, or gallops. GI: Soft, nondistended, normal bowel sounds. peg Tube in place. Extremities:No joint swelling, pedal edema, or tenderness noted. Neurological: Alert, oriented 3, no focal deficits. Psychiatric: normal affect, normal mood. Skin: Dry,. Normal color. No rashes. - Assessment and Plan (1) WENDY (acute kidney injury) Current Visit: Yes Status: Acute (2) Dehydration Current Visit: Yes Status: Acute (3) Failure to thrive Current Visit: Yes Status: Acute (4) Malnutrition Current Visit: Yes Status: Acute (5) Hypokalemia Current Visit: Yes Status: Acute (6) Anemia Current Visit: Yes Status: Acute (7) Bilateral breast cancer Current Visit: No Status: Chronic (8) Oropharyngeal cancer Current Visit: No Status: Chronic - Summary of Assessment and Plan Summary of Assessment and Plan: 64-year-old female with history of breast cancer status post mastectomy and oropharynx cancer status post surgery, chemotherapy, gastric PEG tube, hypot hyroidism who was came into the hospital with her due to generalized weakness. As per the patient had poor oral intake for few weeks. Her symptoms are managed as following Failure to thrive: - Patient does not have the appetite eat. - Chest x-ray is negative, UA/UC still negative. Patient is afebrile and has no leukocytosis. - switch NS to RL, encourage oral intake however patient is refusing. - Ordered BMP for tomorrow. - Nutrionist is on board for TF, patient is not tolerating them due to Nausea. - palliative team consult placed to discuss GOC and possible Hospice option, discussed that with her . ETOH abuse: - Funeral Service Practitioner/Embalmer discussed with oncology dermatology physician assistant that patient used to drink 3 cups a vodka a day. - no signs of withdrawl. scored 0 on CIWA - continue thiamine and folic acid. WENDY: improving - Cr bL ~ 1, today is 1.4. - ordered BMP for tomorrow, monitor kidneys function, monitor input and output, continue IV fluids Hyponatremia: resolved Hypokalemia: Resolved Hypothyroidism: - TSH is 22, on levothyroxine 75 mcg at home. Unsure about compliance. - We will increase her levothyroxine to 100 mcg daily. Macrocytic anemia: - Ferritin, b12 and folic acid are normal. - likely 2/2 hypothyroidism. History of breast cancer status post mastectomy: Continue home medication History of oropharyngeal cancer status post chemotherapy Full code, palliative is consulted for hospice options. Regular diet Heparin SC Disposition: BMAT 1, needs placement. will discuss with social service. - Time Spent with Patient Total time spent is greater than 50% in coordination of care (as documented) at patient's floor/unit and/or counseling patient: Plan of Care Discussed with: patient Internal Medicine: Result - Labs CBC & Chem 7: 04/28/19 07:09 04/29/19 03:35 Labs: BMP 04/29/19 03:35 Sodium 137 Potassium 4.0 D Chloride 111 H Carbon Dioxide 18 L BUN 32 H Creatinine 1.46 H Glucose 115 H Calcium 7.2 L Urine 04/28/19 Range/Units 13:50 Urine Color Yellow (Yellow) Urine Clarity Clear (Clear) Urine pH 5.5 (5.0-8.0) pH Units Ur Specific [place] 1.014 (1.010-1.025) Urine Protein Negative (Neg-Trace) mg/dL Urine Glucose (UA) Normal (Normal) mg/dL Consult Discharge Plan - Plan Referrals: NONE,PCP [Primary Care Provider] - (3) Failure to thrive Qualifiers: Failure to thrive age range: in adult Qualified Code(s): R62.7 - Adult failure to thrive (4) Malnutrition Qualifiers: Malnutrition type: unspecified type Qualified Code(s): E46 - Unspecified protein-calorie malnutrition (6) Anemia Qualifiers: Anemia type: unspecified type Qualified Code(s): D64.9 - Anemia, unspecified (7) Bilateral breast cancer Qualifiers: Qualified Code(s): C50.911 - Malignant neoplasm of unspecified site of right female breast
[2019-04-29 18:48] LABS: Phosphorous 2.8 mg/dL (2.7-4.5)
[2019-04-30 04:06] LABS: Calcium 7.6 mg/dL (8.6-10.3); Potassium 3.8 mEq/L (3.5-5.1)
[2019-04-30] MEDS: *HR* Heparin 5,000 UNIT/ML VIAL SQ SCH ×2 (05:20→16:59)
[2019-04-30] MEDS: Ringers Solution, Lactated 1,000 ML IVC SCH (09:02)
[2019-04-30] MEDS: Folic Acid 1 MG in D5% in Water 50 ML IVPB SCH (09:03)
[2019-04-30] MEDS: Anastrozole 1 MG TABLET PO SCH (09:03)
[2019-04-30] MEDS: Vitamin E 200 UNIT (90MG) CAPSULE PO SCH (09:03)
--- NOTE | 2019-04-30 10:05 | Palliative Progress Note ---
Date of Encounter: 04/30/19 Time of Encounter: 14:20 - Assessment and plan (1) Malnutrition Current Visit: Yes Status: Acute Assessment and plan: Started Megace this am. Switched to mechanical soft diet yesterday. Research Nutritionist in to see today. TF currently at 30ml/hr, should be at goals rate of 45 by am. Qualifiers: Malnutrition type: unspecified type Qualified Code(s): E46 - Unspecified protein-calorie malnutrition (2) Failure to thrive Current Visit: Yes Status: Acute Assessment and plan: Appears more awake and a little more conversant today. Patient adamantly denies again today that she is depressed and refuses SSRI. She is agreeable to PT consult. Qualifiers: Failure to thrive age range: in adult Qualified Code(s): R62.7 - Adult failure to thrive (3) Counseling regarding advanced care planning and goals of care Current Visit: Yes Status: Acute Assessment and plan: Stephen, ex- and POA at bedside. Research Nutritionist in to see, and SW alerted that he is here. Patient open to home health referral/PT. Patient also has not been getting TF supplies as supposed to and he has had limited supplies at home. Patient does desire aggressive care, and wants to improve her nutrition and overall health. (4) Alcohol abuse Current Visit: No Status: Acute (5) Palliative care encounter Current Visit: Yes Status: Acute - Time Spent With Patient Total time spent is greater than 50% in coordination of care (as documented) at patient's floor/unit and/or counseling patient: 25 - 35 minutes - Subjective Interval history: Patient awake and alert. Stephen at bedside feeding her pudding. She is tolerating tube feedings well, currently at 30ml/hr. She is denying pain or discomfort. Remains flat affect and does not verbalize much. She was open to appetite stimulant, but adamantly denies that she is depressed. Research Nutritionist in to see patient and discuss with MAHIN. - Constitutional Vitals: Abnormal lab results RBC 2.45 M/mcL (3.82-4.97) L 04/28/19 07:09 Hgb 9.4 g/dL (11.5-15.4) L 04/28/19 07:09 Hct 27.4 % (35.3-44.9) L 04/28/19 07:09 MCV 111.8 fL (83.0-100.0) H 04/28/19 07:09 MCH 38.4 pg (28.0-33.3) H 04/28/19 07:09 Sodium 135 mEq/L (136-145) L 04/30/19 03:36 Potassium 2.9 mEq/L (3.5-5.1) L 04/28/19 07:09 Chloride 112 mEq/L (98-107) H 04/30/19 03:36 Carbon Dioxide 18 mEq/L (23-29) L 04/30/19 03:36 BUN 27 mg/dL (8-23) H 04/30/19 03:36 Creatinine 1.34 mg/dL (0.60-1.20) H 04/30/19 03:36 Est GFR ( Amer) 48 (> 60) L 04/30/19 03:36 Est GFR (Non-Af Amer) 40 (> 60) L 04/30/19 03:36 Glucose 124 mg/dL (70-105) H 04/30/19 03:36 POC Glucose 113 mg/dL (70-99) H 04/29/19 05:02 Calcium 7.6 mg/dL (8.6-10.3) L 04/30/19 03:36 Phosphorus 5.5 mg/dL (2.7-4.5) H 04/26/19 14:03 Ferritin 463 ng/mL (10-120) H 04/27/19 01:50 Serum Total Protein 5.3 g/dL (6.4-8.9) L 04/26/19 14:03 Albumin 2.1 g/dL (3.5-5.7) L 04/26/19 14:03 Albumin/Globulin Ratio 0.7 (1.1-2.2) L 04/26/19 14:03 TSH 41.982 mcIU/mL (0.340-5.600) H 04/30/19 03:36 Urine Bilirubin Small (Negative) H 04/28/19 13:50 General appearance: Present: no acute distress - Respiratory Respiratory exam: Present: decreased breath sounds, CTAB - Cardiovascular Cardiovascular exam: Present: +S1, +S2 - GI/Abdominal GI/Abdominal exam: Present: normal bowel sounds, soft Additional comments: Feeding tube intact - infusing at 30ml/hr. - Extremities Exam Extremities exam: Present: normal capillary refill, normal inspection - Neurological Exam Neurological exam: Present: alert, oriented X3, strengths equal and symetr throu ghout - Skin Skin exam: Present: dry, warm Palliative Quality Palliative Quality: Screen for Code Status: NA (Awaiting family for goals of care discussion), Screen for Goals of Care: NA, Screen for Pain: Yes, If Pain Regimen Started, Initiate Bowel Regimen: NA, Screen for Nausea/Vomitting: Yes Code Status: 04/26/19 17:42 Resuscitation Status: Active [RES] Routine Comment: Resuscitation Status: Full Code - Labs CBC & Chem 7: 04/28/19 07:09 04/30/19 03:36 Labs: Laboratory Results - last 24 hr 04/28/19 04/29/19 04/29/19 23:33 03:35 05:02 Sodium 137 Potassium 4.0 D Chloride 111 H Carbon Dioxide 18 L BUN 32 H Creatinine 1.46 H Est GFR ( Amer) 44 L Est GFR (Non-Af Amer) 36 L BUN/Creatinine Ratio 22 Glucose 115 H POC Glucose 127 H 113 H Calculated Osmolality 292 Calcium 7.2 L Phosphorus 2.8 Magnesium 1.8 TSH 04/30/19 04/30/19 04/30/19 03:36 03:36 03:36 Sodium 135 L Potassium 3.8 Chloride 112 H Carbon Dioxide 18 L BUN 27 H Creatinine 1.34 H Est GFR ( Amer) 48 L Est GFR (Non-Af Amer) 40 L BUN/Creatinine Ratio 20 Glucose 124 H POC Glucose Calculated Osmolality 287 Calcium 7.6 L Phosphorus 3.3 Magnesium TSH 41.982 H Consult Discharge Plan - Plan Referrals: NONE,PCP [Primary Care Provider] -
[2019-04-30] MEDS: Thiamine (B-1) 100 MG in D5% in Water 50 ML IVPB SCH (10:10)
--- NOTE | 2019-04-30 12:12 | Internal Med Progress Note ---
Hospitalist Progress Note - Encounter Date of Encounter: 04/30/19 Time of Encounter: 09:20 - Subjective Interval History: No major events overnight. Patient was seen this a.m. He denied fever, chills or night sweats. He has no nausea, vomiting or abdominal pain. Patient denied chest pain, shortness of breath or palpitation. She started eating slightly. She is tolerating feeding tube. - Exam Vitals: Temp Pulse Resp BP Pulse Ox 97.9 F 100 18 114/82 96 04/30/19 10:57 04/30/19 10:57 04/30/19 10:57 04/30/19 10:57 04/30/19 10:57 Exam: Gen: She is alert and oriented, cachectic, no distress. Head: Atraumatic, . Temporal muscle wasting. Eye: EOMI, PERRLA, no scleral icterus noted. ENT: Mucous membranes moist. No odontogenic infection noted. Large amount of oral secretions noted. Neck: Normal inspection, Respiratory: No respiratory distress, rhonchi, or wheezes noted. Cardiovascular: Regular rate and regular rhythm, S1 and S2 audible. No murmurs, rubs, or gallops. GI: Soft, nondistended, normal bowel sounds. peg Tube in place. Extremities:No joint swelling, pedal edema, or tenderness noted. Neurological: Alert, oriented 3, no focal deficits. Psychiatric: normal affect, normal mood. Skin: Dry,. Normal color. No rashes. - Assessment and Plan (1) WENDY (acute kidney injury) Current Visit: Yes Status: Acute (2) Dehydration Current Visit: Yes Status: Acute (3) Failure to thrive Current Visit: Yes Status: Acute (4) Malnutrition Current Visit: Yes Status: Acute (5) Hypokalemia Current Visit: Yes Status: Resolved (6) Anemia Current Visit: Yes Status: Acute (7) Bilateral breast cancer Current Visit: No Status: Chronic (8) Oropharyngeal cancer Current Visit: No Status: Chronic - Summary of Assessment and Plan Summary of Assessment and Plan: 64-year-old female with history of breast cancer status post mastectomy and oropharynx cancer status post surgery, chemotherapy, gastric PEG tube, hypothyroidism who was came into the hospital with her due to generalized weakness. As per the patient had poor oral intake for few weeks. Her symptoms are managed as following Failure to thrive: - Patient does not have the appetite eat. - Chest x-ray is negative, UA/UC negative. Patient is afebrile and has no leukocytosis. - switch NS to RL, encourage oral intake. - Ordered BMP for tomorrow. - Nutrionist is on board for TF, patient is tolerating her tube feeding today, she is on 30 mL with goal of 45 mL per hour as per the RN. - palliative team consult placed to discuss GOC and possible Hospice option, seems patient in not a candidate for hospice and she will go home once she is medically stable. She is started on appetite stimulant. ETOH abuse: - Bulk Plant Operator discussed with oncology solderer torch that patient used to drink 3 cups a vodka a day. - no signs of withdrawl. scored 1 on CIW. will stop - continue thiamine and folic acid. WENDY: improving - Cr bL ~ 1, today is 1.3. - ordered BMP for tomorrow, monitor kidneys function, monitor input and output, continue IV fluids Hyponatremia: resolved Hypokalemia: Resolved Hypothyroidism: - TSH is 22 at presentation and 41 today with no response to levothyroxine 100 mcg. - We will increase her levothyroxine to 125 mcg daily. Macrocytic anemia: - Ferritin, b12 and folic acid are normal. - likely 2/2 hypothyroidism. History of breast cancer status post mastectomy: Continue home medication History of oropharyngeal cancer status post chemotherapy Full code, palliative is consulted for hospice options. Regular diet Heparin SC Disposition: BMAT 3, needs placement. will discuss with social/palliative service. - Time Spent with Patient Total time spent is greater than 50% in coordination of care (as documented) at patient's floor/unit and/or counseling patient: Plan of Care Discussed with: patient Internal Medicine: Result - Labs CBC & Chem 7: 04/28/19 07:09 04/30/19 03:36 Labs: BMP 04/29/19 04/30/19 03:35 03:36 Sodium 137 135 L Potassium 4.0 D 3.8 Chloride 111 H 112 H Carbon Dioxide 18 L 18 L BUN 32 H 27 H Creatinine 1.46 H 1.34 H Glucose 115 H 124 H Calcium 7.2 L 7.6 L Consult Discharge Plan - Plan Referrals: NONE,PCP [Primary Care Provider] - (3) Failure to thrive Qualifiers: Failure to thrive age range: in adult Qualified Code(s): R62.7 - Adult failure to thrive (4) Malnutrition Qualifiers: Malnutrition type: unspecified type Qualified Code(s): E46 - Unspecified protein-calorie malnutrition (6) Anemia Qualifiers: Anemia type: unspecified type Qualified Code(s): D64.9 - Anemia, unspecified (7) Bilateral breast cancer Qualifiers: Qualified Code(s): C50.911 - Malignant neoplasm of unspecified site of right female breast
[2019-05-01] MEDS: Ringers Solution, Lactated 1,000 ML IVC SCH ×4 (00:04→20:36)
[2019-05-01] MEDS: Vitamin E 200 UNIT (90MG) CAPSULE PO SCH ×3 (00:06→20:36)
[2019-05-01] MEDS: *HR* Heparin 5,000 UNIT/ML VIAL SQ SCH ×2 (06:26→17:36)
[2019-05-01 08:48] LABS: BUN/Creatinine Ratio 24 (6-26); Blood Urea Nitrogen 26 mg/dL (8-23); Carbon Dioxide 19 mEq/L (23-29); Chloride 111 mEq/L (98-107); Glucose 100 mg/dL (70-105); Osmolality,Calculated 289 (280-300); Potassium 4.2 mEq/L (3.5-5.1); Sodium 137 mEq/L (136-145); eGFR For African Americans > 60 (> 60); eGFR For Non-African Americans 51 (> 60)
[2019-05-01] MEDS: Thiamine (B-1) 100 MG TABLET PO SCH (09:00)
[2019-05-01] MEDS: Folic Acid 1 MG TABLET PO SCH (09:00)
[2019-05-01] MEDS: Anastrozole 1 MG TABLET PO SCH (09:00)
--- NOTE | 2019-05-01 09:48 | Internal Med Progress Note ---
Hospitalist Progress Note - Encounter Date of Encounter: 05/01/19 - Exam Vitals: Temp Pulse Resp BP Pulse Ox 97.5 F L 116 17 116/89 99 05/01/19 06:56 05/01/19 06:56 05/01/19 06:56 05/01/19 06:56 05/01/19 06:56 - Assessment and Plan (1) Oropharyngeal cancer Current Visit: No Status: Chronic (2) Dehydration Current Visit: Yes Status: Acute (3) Anemia Current Visit: Yes Status: Acute (4) Bilateral breast cancer Current Visit: No Status: Chronic (5) Failure to thrive Current Visit: Yes Status: Acute (6) Hypokalemia Current Visit: Yes Status: Resolved (7) Malnutrition Current Visit: Yes Status: Acute (8) WENDY (acute kidney injury) Current Visit: Yes Status: Acute - Time Spent with Patient Total time spent is greater than 50% in coordination of care (as documented) at patient's floor/unit and/or counseling patient: Internal Medicine: Result - Labs CBC & Chem 7: 04/28/19 07:09 05/01/19 08:13 Labs: BMP 05/01/19 08:13 Sodium 137 Potassium 4.2 Chloride 111 H Carbon Dioxide 19 L BUN 26 H Creatinine 1.08 Glucose 100 Calcium 8.0 L Consult Discharge Plan - Plan Referrals: NONE,PCP [Primary Care Provider] - (3) Anemia Qualifiers: Anemia type: unspecified type Qualified Code(s): D64.9 - Anemia, unspecified (4) Bilateral breast cancer Qualifiers: Qualified Code(s): C50.911 - Malignant neoplasm of unspecified site of right female breast (5) Failure to thrive Qualifiers: Failure to thrive age range: in adult Qualified Code(s): R62.7 - Adult failure to thrive (7) Malnutrition Qualifiers: Malnutrition type: unspecified type Qualified Code(s): E46 - Unspecified protein-calorie malnutrition
--- NOTE | 2019-05-01 09:58 | Discharge Summary ---
Date of Encounter: 05/01/19 Time of Encounter: 09:50 - Discharge Diagnosis (1) Failure to thrive Priority: Primary Status: Acute Qualifiers: Failure to thrive age range: in adult Qualified Code(s): R62.7 - Adult failure to thrive (2) Oropharyngeal cancer Priority: Secondary Status: Chronic (3) Dehydration Priority: Secondary Status: Acute (4) Anemia Priority: Secondary Status: Acute Qualifiers: Anemia type: unspecified type Qualified Code(s): D64.9 - Anemia, unspecified (5) Bilateral breast cancer Priority: Secondary Status: Chronic Qualifiers: Qualified Code(s): C50.911 - Malignant neoplasm of unspecified site of right female breast; C50.912 - Malignant neoplasm of unspecified site of left female breast (6) Hypokalemia Priority: Secondary Status: Resolved (7) Malnutrition Priority: Secondary Status: Acute Qualifiers: Malnutrition type: unspecified type Qualified Code(s): E46 - Unspecified protein-calorie malnutrition (8) WENDY (acute kidney injury) Priority: Secondary Status: Resolved Hospital course: Ms. Ribeiro is a 64 year old female Discharge discussed with: patient - Time Spent with Patient Total time spent providing and/or coordinating discharge services: Time spent: Greater than 30 minutes - Discharge Medications Prescriptions: New Levothyroxine [Synthroid] 125 mcg PO DAILY@0630 #30 tablet Vitamin E 400 unit PO BID capsule Continued Anastrozole [Arimidex] 1 mg PO DAILY #90 tablet Vitamin E (Dl,Tocopheryl Acet) [Vitamin E] 400 unit PO BID #60 cap Folic Acid 1 mg PO DAILY Omeprazole [PriLOSEC] 20 mg PO DAILY #30 capsule. Discontinued Levothyroxine [Synthroid] 75 mcg PO DAILY #30 tablet Home Medications: Anastrozole [Arimidex] 1 mg PO DAILY #90 tablet 02/15/18 [Rx] Vitamin E (Dl,Tocopheryl Acet) [Vitamin E] 400 unit PO BID #60 cap 03/15/18 [Rx] Folic Acid 1 mg PO DAILY 09/18/18 [History] Omeprazole [PriLOSEC] 20 mg PO DAILY #30 capsule. 03/01/19 [Rx] Levothyroxine [Synthroid] 125 mcg PO DAILY@0630 #30 tablet 05/01/19 [Rx] Vitamin E 400 unit PO BID capsule 05/01/19 [Rx] Allergies/Adverse Reactions: Allergy/AdvReac Type Severity Reaction Status Date / Time No Known Allergies Allergy Verified 04/26/19 11:39 Date of admission: 04/26/19 19:05 Primary care physician: PCP NONE Consults: 04/26/19 20:22 Consult to Nutrition [CONS] Routine Comment: Consulting Provider: NUTRITION Reason for Dietary Consult: Diet Education 04/26/19 21:28 Consult to Nutrition [CONS] Routine Comment: Consulting Provider: NUTRITION Reason for Dietary Consult: Diet Education 04/27/19 11:21 Consult to Nutrition [CONS] Routine Comment: Consulting Provider: NUTRITION Reason for Dietary Consult: Tube Feed Start & Manage 04/28/19 13:23 Consult to Palliative Care [CONS] Routine Comment: Consulting Provider: Palliative Care Jackie Reason for Consult: Patient with hx of cancer, failure to thrive, not eating. Discuss goals of care and possible hospice options. Call Completed: No 04/29/19 15:01 Consult to Occupational Therapy [CONS] Routine Comment: Evaluate, develop and implement POC Reason for Consult: evaluate the need for skilled placement Does patient have active BEDREST order?: No Is patient medically & hemodynamically stable?: Yes Consult to Physical Therapy [CONS] Routine Comment: Evaluate, develop and implement POC Reason for Consult: Evaluation for skilled Does patient have active BEDREST order?: No Is patient medically & hemodynamically stable?: Yes 04/30/19 07:51 Consult to Financial Advocate [CONS] Routine Reason for SW Consult: poss ecf vs hh, alcohol abuse - Constitutional Vitals: Temp Pulse Resp BP Pulse Ox 97.5 F L 116 17 116/89 99 05/01/19 06:56 05/01/19 06:56 05/01/19 06:56 05/01/19 06:56 05/01/19 06:56 General appearance: Present: cachectic, A&O X 3 Exam: Gen: She is alert and oriented, cachectic, no distress. Head: Atraumatic, . Temporal muscle wasting. Eye: EOMI, PERRLA, no scleral icterus noted. ENT: Mucous membranes moist. No odontogenic infection noted. Large amount of oral secretions noted. Neck: Normal inspection, Respiratory: No respiratory distress, rhonchi, or wheezes noted. Cardiovascular: Regular rate and regular rhythm, S1 and S2 audible. No murmurs, rubs, or gallops. GI: Soft, nondistended, normal bowel sounds. peg Tube in place. Extremities:No joint swelling, pedal edema, or tenderness noted. Neurological: Alert, oriented 3, no focal deficits. Psychiatric: normal affect, normal mood. Skin: Dry,. Normal color. No rashes. - Patient Status Disposition: Transfer SNF Condition: Fair - Discharge Instructions Follow Up With: NONE,PCP [Primary Care Provider] -
[2019-05-01 14:45] LABS: Eosinophils % 0.2 %; Hematocrit 28.5 % (35.3-44.9); Hemoglobin 9.6 g/dL (11.5-15.4); Immature Granulocytes % 0.3 % (0-4); Lymphocytes # 0.7 K/mcL (0.6-4.6); Lymphocytes % 11.2 %; Mean Corpuscular HGB Conc 33.7 g/dL (31.6-35.5); Mean Corpuscular Hemoglobin 37.4 pg (28.0-33.3); Mean Corpuscular Volume 110.9 fL (83.0-100.0); Monocytes # 0.6 K/mcL (0.0-1.3); Monocytes % 9.5 %; Neutrophils # 4.7 K/mcL (1.6-8.9); Platelet Count 180 K/mcL (140-400); Red Blood Count 2.57 M/mcL (3.82-4.97); Red Cell Distribution Width 13.8 % (11.5-14.5); Segmented Neutrophils % 78.8 %; White Blood Count 5.9 K/mcL (4.3-11.1)
[2019-05-01 15:11] LABS: Anisocytosis 1+ (Not Present); Macrocytosis Present (Not Present); Platelet Estimate Normal (Normal)
[2019-05-02 05:36] LABS: Alanine Aminotransferase 13 Units/L (7-52); Albumin 1.8 g/dL (3.5-5.7); Albumin/Globulin Ratio 0.6 (1.1-2.2); Alkaline Phosphatase 91 Units/L (34-104); Aspartate Amino Transferase 17 Units/L (13-39); BUN/Creatinine Ratio 26 (6-26); Bilirubin,Total 0.3 mg/dL (0.3-1.0); Blood Urea Nitrogen 26 mg/dL (8-23); Carbon Dioxide 23 mEq/L (23-29); Chloride 108 mEq/L (98-107); Globulin 2.9 g/dL (2.4-3.5); Glucose 126 mg/dL (70-105); Osmolality,Calculated 292 (280-300); Potassium 4.2 mEq/L (3.5-5.1); Sodium 138 mEq/L (136-145); Total Protein 4.7 g/dL (6.4-8.9); eGFR For African Americans > 60 (> 60); eGFR For Non-African Americans 56 (> 60)
[2019-05-02] MEDS: *HR* Heparin 5,000 UNIT/ML VIAL SQ SCH ×2 (06:05→16:48)
[2019-05-02] MEDS: Ringers Solution, Lactated 1,000 ML IVC SCH ×2 (07:06→16:58)
[2019-05-02 07:17] LABS: Phosphorous 3.6 mg/dL (2.7-4.5)
[2019-05-02] MEDS: Anastrozole 1 MG TABLET PO SCH (08:15)
[2019-05-02] MEDS: Vitamin E 200 UNIT (90MG) CAPSULE PO SCH ×2 (08:15→22:18)
[2019-05-02] MEDS: Thiamine (B-1) 100 MG TABLET PO SCH (08:15)
[2019-05-02] MEDS: Folic Acid 1 MG TABLET PO SCH (08:16)
--- NOTE | 2019-05-02 10:31 | Internal Med Progress Note ---
Hospitalist Progress Note - Encounter Date of Encounter: 05/02/19 Time of Encounter: 08:00 - Subjective Interval History: Patient developed Afib with RVR last night and was started on cardizem drip by the night team. She states this morning that she feels weak but denies SOB, palpitations, chest pain and SOB. - Exam Vitals: Temp Pulse Resp BP Pulse Ox 35.8 C L 115 20 139/81 92 05/02/19 07:49 05/02/19 07:49 05/02/19 07:49 05/02/19 07:49 05/02/19 07:49 Exam: Gen: She is alert and oriented, cachectic, no distress. Head: Atraumatic, . Temporal muscle wasting. Eye: EOMI, PERRLA, no scleral icterus noted. ENT: Mucous membranes moist. Poor oral hygiene Neck: Normal inspection, Respiratory: No respiratory distress, rhonchi, or wheezes noted. Cardiovascular: Rate of 120bpm. Pulse irreglarly irreglar GI: Soft, nondistended, normal bowel sounds. peg Tube in place. Extremities:No joint swelling, pedal edema, or tenderness noted. Neurological: Alert, oriented 3, no focal deficits. Psychiatric: normal affect, normal mood. Skin: Dry,. Normal color. No rashes. - Assessment and Plan (1) Atrial fibrillation with rapid ventricular response Current Visit: Yes Status: Acute (2) Failure to thrive Current Visit: Yes Status: Acute (3) Oropharyngeal cancer Current Visit: No Status: Chronic (4) Dehydration Current Visit: Yes Status: Acute (5) Anemia Current Visit: Yes Status: Acute (6) Bilateral breast cancer Current Visit: No Status: Chronic (7) Hypokalemia Current Visit: Yes Status: Resolved (8) Malnutrition Current Visit: Yes Status: Acute (9) WENDY (acute kidney injury) Current Visit: Yes Status: Resolved - Summary of Assessment and Plan Summary of Assessment and Plan: Pateint is a 64 yo woman with a PMHx of Breast Ca s/p mastectomy and Oropha yngeal Ca (s/p surgery, chemotherapy, PEG tube placement) and Hypothyroidism. She was admitted on account of failure to thrive and severe malnutrition due to poor oral intake. Preparations were being made to transfer patient to the senior care but she developed Afib with RVR last night. 1. Afib with RVR * HR was up in the 130s last night and Cardizem drip was started * Drip has been stopped on account of hypotension * Pateint has no complaints * HR between 90 and 115 * CHADVASC score of 2. Patient currently not a candidate for anticoagulation based on new guidelines * Give IV NS bolus * Cardio consult placed. 2. Failure to Thrive * Very poor oral intake * Tube feeding through PEG currently at 45cc/hr per sand buffer's recommendation. 3. Dehydration * Patient has dry lips and oral mucosa * BUN/CR ratio of 26 * No urine output obtained in the last 2 days. * Bladder scan revealed 396 ml of urine in bladder. * Staight cath patient * IV NS * Will analyze urine elctrolytes and calculate FeNa. 4. Hypothryoidism * On levaquin 125mcg daily. - Time Spent with Patient Total time spent is greater than 50% in coordination of care (as documented) at patient's floor/unit and/or counseling patient: Internal Medicine: Result - Labs CBC & Chem 7: 05/01/19 14:23 05/02/19 04:11 Labs: Short CBC 05/01/19 Range/Units 14:23 WBC 5.9 (4.3-11.1) K/mcL Hgb 9.6 L (11.5-15.4) g/dL Hct 28.5 L (35.3-44.9) % Plt Count 180 (140-400) K/mcL Neutrophils # 4.7 (1.6-8.9) K/mcL BMP 05/02/19 04:11 Sodium 138 Potassium 4.2 Chloride 108 H Carbon Dioxide 23 BUN 26 H Creatinine 0.99 Glucose 126 H Calcium 8.0 L Liver Function 05/02/19 Range/Units 04:11 Total Bilirubin 0.3 (0.3-1.0) mg/dL AST 17 (13-39) Units/L ALT 13 (7-52) Units/L Alkaline Phosphatase 91 (34-104) Units/L Albumin 1.8 L (3.5-5.7) g/dL Consult Discharge Plan - Plan Referrals: NONE,PCP [Primary Care Provider] - (ECF placement) Prescriptions: Levothyroxine [Synthroid] 125 mcg PO DAILY@629 #30 tablet (2) Failure to thrive Qualifiers: Failure to thrive age range: in adult Qualified Code(s): R62.7 - Adult failure to thrive (5) Anemia Qualifiers: Anemia type: unspecified type Qualified Code(s): D64.9 - Anemia, unspecified (6) Bilateral breast cancer Qualifiers: Qualified Code(s): C50.911 - Malignant neoplasm of unspecified site of right female breast; C50.912 - Malignant neoplasm of unspecified site of left female breast (8) Malnutrition Qualifiers: Malnutrition type: unspecified type Qualified Code(s): E46 - Unspecified protein-calorie malnutrition
[2019-05-02] MEDS ORDERED: 0.9 % Sodium Chloride 500 ML IV ONE (12:37)
--- NOTE | 2019-05-02 12:41 | Event Note ---
Date of Encounter: 05/02/19 Time of Encounter: 10:00 Patient sleeping, awakens easily. Flat affect. No complaints. Did develop afib and was placed on Cardizem. Continue to tolerate tube feedings, no nausea. Having BM's. Awaiting PT eval and desires placement at [facility]. Palliative currently not managing any symptoms, will sign off. Please call if needed.
--- NOTE | 2019-05-02 14:43 | Electrocardiograph Report ---
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
--- NOTE | 2019-05-02 14:47 | Cardiology Consult Note ---
Date of Encounter: 05/02/19 Time of Encounter: 14:43 Assessment and Plan (1) Atrial fibrillation with rapid ventricular response Current Visit: Yes Status: Acute Likely secondary to multiple comorbidities and underlying hypovolemia and dehydration. Gentle rehydration and correction of electrolytes mainly to spontaneous recovery conversion to sinus rhythm. Patient unable currently to tolerate beta blockers or rate controlling medications, echocardiogram pending which will help guide us in regards to appropriate management. May consider digoxin with rates above 120 bpm. Aspirin 81 mg for stroke risk reduction is reasonable May consider rate control medications after echocardiogram shows no significant structural heart abnormalities and after rehydration. Discussion w patient/family: The assessment and plan as outlined above was discussed with the patient and/or family members who expressed understanding and agreement. All questions were answered. Thank you for involving us in the care of your patient. Please call with any questions. History of Present Illness Consult date: 05/02/19 Consult reason: PAF Chief complaint: Palpitations History of present illness: Ms. Ribeiro is a 64 year old female with history of multiple comorbidities including breast cancer and nasopharyngeal cancer presents with failure to thrive, dehydration and severe hypokalemia. Patient was found to have paroxys mal atrial fibrillation after sinus tachycardia currently being rehydrated with improvement in her creatinine and improvement in her potassium levels. Patient was hypertensive after starting Cardizem IV likely secondary to significant intravascular depletion. Would recommend rehydration continue correction of electrolyte abnormalities which likely will lead to improvement in her heart rate and possibly spontaneous conversion to sinus rhythm. Her only risk factor is female and age, hence no significant risk for CVA. Aspirin 81 mg if not contraindicated. Echocardiogram pending to evaluate for structural heart abnormalities Past Med Surg Social Fam HX - Past Medical History Medical history: cancer Additional medical history: LARYNGEAL CANCER, BREAST CANCER. SMOKER. CANCER TREATMENT Psychiatric history: anxiety - Past Surgical History Surgical History: no surgical history Additional surgical history: LEFT BREAST CYST EXCISION. G-TUBE. Bilateral Mastectomy - Social History Smoking Status: Current every day smoker Smokeless Tobacco Status: No Alcohol use: heavy Drug use: none - Family History Father Hx Family Cancer: Yes (Chest) Medications and Allergies Anastrozole [Arimidex] 1 mg PO DAILY #90 tablet 02/15/18 [Rx] Vitamin E (Dl,Tocopheryl Acet) [Vitamin E] 400 unit PO BID #60 cap 03/15/18 [Rx] Folic Acid 1 mg PO DAILY 09/18/18 [History] Omeprazole [PriLOSEC] 20 mg PO DAILY #30 capsule. 03/01/19 [Rx] Levothyroxine [Synthroid] 125 mcg PO DAILY@0630 #30 tablet 05/01/19 [Rx] Vitamin E 400 unit PO BID capsule 05/01/19 [Rx] Allergy/AdvReac Type Severity Reaction Status Date / Time No Known Allergies Allergy Verified 04/26/19 11:39 All Systems Review: The remainder of the systems were reviewed and are negative Physical Examination Vital Signs, Last 4 Hours Temp Pulse Resp BP Pulse Ox 05/02/19 12:35 103 89/56 05/02/19 11:14 97.6 F 114 20 84/64 91 General: Conversant, No Apparent Distress HEENT: Atraumatic, Normocephaly, Mucus Membranes Moist Neck: No JVD, Normal carotid pulses Cardiac: Reg Rate and Rhythm, Normal S1 and S2, No Murmur Lungs: Normal Breath Sounds, No Wheeze, Rales, Rhonchi Neuro: Alert and responsive, No focal deficits noted Abdomen: Soft, Non-Tender Skin: No rashes noted on visualized skin Musculoskeletal: No Chest Wall Tenderness Extremities: No Clubbing, No Cyanosis, No Edema, Normal Pulses Results 05/01/19 14:23 05/02/19 04:11 Lab Results 05/01/19 05/02/19 14:23 04:11 WBC 5.9 Hgb 9.6 L Hct 28.5 L Plt Count 180 Sodium 138 Potassium 4.2 Chloride 108 H Carbon Dioxide 23 BUN 26 H Creatinine 0.99 Glucose 126 H Calcium 8.0 L Total Bilirubin 0.3 AST 17 ALT 13 Alkaline Phosphatase 91 Consult Discharge Plan - Plan Referrals: NONE,PCP [Primary Care Provider] - (ECF placement) Prescriptions: Levothyroxine [Synthroid] 125 mcg PO DAILY@0630 #30 tablet
--- NOTE | 2019-05-02 14:49 | Electrocardiograph Report ---
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
[2019-05-02] MEDS: Ondansetron 4 MG/2 ML VIAL IVP PRN (16:48)
--- NOTE | 2019-05-02 20:42 | Event Note ---
Date of Encounter: 05/02/19 Time of Encounter: 20:[address] Wayne regarding patient's Echo results. Patient does have 9mm x 4.5mm echogenic mass on mitral valve leaflet which could represent vegetation vs. thrombus, unclear given patient's history. Would be more adequately evaluated with BENNY, however uncertain what the goals of care for this patient are. At this time I will make the patient NPO at midnight for primary team to discuss possible workup in morning.
[2019-05-02] MEDS ORDERED: *HR* Metoprolol 5 MG/5 ML VIAL IVP ONE (23:49)
[2019-05-03] MEDS: Ringers Solution, Lactated 1,000 ML IVC SCH (01:52)
[2019-05-03] MEDS: *HR* Heparin 5,000 UNIT/ML VIAL SQ SCH (04:38)
[2019-05-03 07:37] LABS: Hematocrit 27.1 % (35.3-44.9); Hemoglobin 9.1 g/dL (11.5-15.4); Immature Granulocytes % 0.4 % (0-4); Lymphocytes # 0.5 K/mcL (0.6-4.6); Mean Corpuscular HGB Conc 33.6 g/dL (31.6-35.5); Mean Corpuscular Hemoglobin 37.4 pg (28.0-33.3); Mean Corpuscular Volume 111.5 fL (83.0-100.0); Mean Platelet Volume 12.2 fL (9.4-12.4); Monocytes % 10.5 %; Neutrophils # 7.9 K/mcL (1.6-8.9); Platelet Count 183 K/mcL (140-400); Red Blood Count 2.43 M/mcL (3.82-4.97); Red Cell Distribution Width 14.4 % (11.5-14.5); Segmented Neutrophils % 84.1 %
[2019-05-03 08:01] LABS: BUN/Creatinine Ratio 32 (6-26); Blood Urea Nitrogen 30 mg/dL (8-23); Calcium 8.2 mg/dL (8.6-10.3); Carbon Dioxide 18 mEq/L (23-29); Chloride 109 mEq/L (98-107); Glucose 127 mg/dL (70-105); Osmolality,Calculated 296 (280-300); Sodium 139 mEq/L (136-145); eGFR For African Americans > 60 (> 60); eGFR For Non-African Americans 60 (> 60)
[2019-05-03 08:05] LABS: Potassium 6.1 mEq/L (3.5-5.1)
[2019-05-03 08:32] LABS: White Blood Count 9.4 K/mcL (4.3-11.1)
[2019-05-03 08:41] LABS: Platelet Estimate Normal (Normal)
[2019-05-03 08:42] LABS: Macrocytosis Present (Not Present)
--- NOTE | 2019-05-03 09:53 | Internal Med Progress Note ---
Hospitalist Progress Note - Encounter Date of Encounter: 05/03/19 Time of Encounter: 09:54 - Subjective Interval History: Patient had an uneventful night but looks very sick this morning. She is lying supine in bed and and looks short of breath. She cannot complete sentences due to shortness of breath. She has generalized edema and is too weak to even put on her own glasses. Her pulses are palpable but blood pressure can only be detected with doppler with systolic in 70s. I asked patient what she wants her code status to be and she states that she wants to be resuscitated in the event of a cardiac arrest. - Exam Vitals: Temp Pulse Resp BP Pulse Ox 37.2 C 111 17 84/59 92 05/03/19 02:46 05/03/19 08:09 05/03/19 08:09 05/03/19 08:09 05/03/19 02:46 Exam: GENERAL: Patient respiratory distress. Looks very weak and frail HEENT: EOMI, PERRLA MOUTH: Dry oral mucosa NECK:No JVD, No lymph nodes. CHEST AND LUNGS: Markedly reduced air entry in both lung franco HEART: S1 and S2 normal, no murmurs ABDOMEN: Soft, nontender, no organomegaly, PEG tube in place and surrounding skin does not look infected SKIN: Normal color, no rashes, no lesions EXTREMITIES: Edema in both lower extremities and upper extremities NEUROLOGICAL: Alert and oriented 3 - Assessment and Plan (1) Acute respiratory failure with hypoxia Current Visit: Yes Status: Acute (2) Bilateral pleural effusion Current Visit: Yes Status: Acute (3) High anion gap metabolic acidosis Current Visit: Yes Status: Acute (4) Atrial fibrillation with rapid ventricular response Current Visit: Yes Status: Acute (5) Failure to thrive Current Visit: Yes Status: Acute (6) Oropharyngeal cancer Current Visit: No Status: Chronic (7) Dehydration Current Visit: Yes Status: Acute (8) Anemia Current Visit: Yes Status: Acute (9) Bilateral breast cancer Current Visit: No Status: Chronic (10) Hypokalemia Current Visit: Yes Status: Resolved (11) Malnutrition Current Visit: Yes Status: Acute (12) WENDY (acute kidney injury) Current Visit: Yes Status: Resolved (13) Sepsis due to pneumonia Current Visit: Yes Status: Acute (14) Pneumonia Current Visit: Yes Status: Acute - Summary of Assessment and Plan Summary of Assessment and Plan: Pateint is a 64 yo woman with a PMHx of Breast Ca s/p mastectomy and Orophayngeal Ca (s/p surgery, chemotherapy, PEG tube placement) and Hypothyroidism. She was admitted on account of failure to thrive and severe malnutrition due to poor oral intake. Preparations were being made to transfer patient to the correction but she developed Afib with RVR last night. 1. Acute hypoxic respiratory failure * Patient was saturating in high 80s on non-rebreather mask with 6L of oxygen * Saturation improved on BIPAP with 50% Fi02 * ABGs consistent with metabolic acidosis and mild hypercapnia. PO2 levels not reliable since patient was receiving high flow oxygen 2. Bilateral Pleural Effusions * CXR performed shpwed new pleural effusions, right larger than left. New dense opacifications to the bilateral lower zone, right worse than left, relating to the pleural effusions and/or superimposed atelectasis or infiltrates. * Consult Pulmonology for possible thoracocentesis. 3. Pneumonia * Hypoxia with infiltrates on xray * Will start Vanc and Levaquin 4. Sepsis * Source likely pneumonia * Patient hypotensive * Will give fluids per sepsis protocol * SIRS 3/4 HR 118, RR 26, temp 33.8 * Vanc and Levaquin 5. High Anion Gap and non gap acidosis * Low bicarb * Lactic acid 1.5 * Likely from starvation ketosis * ABG showed a pH of 7.15 6. 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 7. Afib with RVR * HR 118 * managing with cardio 8. Failure to Thrive * Very poor oral intake * Tube feeding through PEG currently at 45cc/hr per [facility]'s recommendation. 9. Dehydration * Patient has dry lips and oral mucosa * BUN/CR ratio of 26 * No urine output obtained in the last 2 days. * Bladder scan revealed 396 ml of urine in bladder. * Staight cath patient * IV NS * Will analyze urine elctrolytes and calculate FeNa. 10. Hypothryoidism * On levaquin 125mcg daily. DISPOSITION: PATIENT TO BE TRANSFERRED TO THE ICU IN THE INTERIM FOR STABILIZATION. STEPS BEING TAKEN TO ULTIMATELY TRANSFER PATIENT TO [facility] PER POA's REQUEST - Time Spent with Patient Total time spent is greater than 50% in coordination of care (as documented) at patient's floor/unit and/or counseling patient: Greater than 35 minutes (60min) Plan of Care Discussed with: family Internal Medicine: Result - Labs CBC & Chem 7: 05/03/19 06:59 05/03/19 14:10 Labs: Short CBC 05/03/19 Range/Units 06:59 WBC 9.4 D (4.3-11.1) K/mcL Hgb 9.1 L (11.5-15.4) g/dL Hct 27.1 L (35.3-44.9) % Plt Count 183 (140-400) K/mcL Neutrophils # 7.9 (1.6-8.9) K/mcL BMP 05/03/19 06:59 Sodium 139 Potassium 6.1 H Chloride 109 H Carbon Dioxide 18 L BUN 30 H Creatinine 0.94 Glucose 127 H Calcium 8.2 L - Impressions Impressions Echocardiogram 05/02/19 13:10 Impressions: LVEF 60%. Normal LV chamber size, wall thickness and systolic function. The right ventricule was not well evaluated Mild tricuspid regurgitation. No evidence of pulmonary hypertension. There is a 9mm by 4.5mm echogenic mass on the left ventricular side of the anterior mitral valve leaflet. Clinical correlation is recommended. Moderate-severe eccentric mitral regurgitation. Findings communicated with covering hospitalist Left Ventricular Wall Motion: Rest Echo Findings All wall segments showed normal motion. Findings: Study Quality * Technically sub-optimal due to poor echocardiographic windows. ECG Findings * Sinus tachycardia. Left Ventricle * LVEF 60%. * Indeterminate diastolic function. * Normal LV chamber size, wall thickness and systolic function. Right Ventricle * The right ventricule was not well evaluated Left Atrium * Mildly dilated left atrium. Right Atrium * Normal right atrial size. Interatrial Septum * Interatrial septum not well evaluated. Aortic Valve * Aortic valve not well visualized. * No aortic regurgitation. * No aortic stenosis. Mitral Valve * Moderate-severe mitral regurgitation. * No mitral stenosis. * There is a 9mm by 4.5mm echogenic mass on the left ventricular side of the anterior mitral valve leaflet. Clinical correlation is recommended. Tricuspid Valve * Mild tricuspid regurgitation. * No tricuspid stenosis. * No evidence of pulmonary hypertension. Pulmonic Valve * Pulmonic valve not well visualized. Aorta * Normally sized aortic root. Pericardium * The pericardium appears normal. IVC * Normal IVC dimensions and inspiratory collapse. Pulmonary Artery * Pulmonary artery not well visualized. Consult Discharge Plan - Plan Referrals: NONE,PCP [Primary Care Provider] - (ECF placement) Prescriptions: Levothyroxine [Synthroid] 125 mcg PO DAILY@629 #30 tablet (5) Failure to thrive Qualifiers: Failure to thrive age range: in adult Qualified Code(s): R62.7 - Adult failure to thrive (8) Anemia Qualifiers: Anemia type: unspecified type Qualified Code(s): D64.9 - Anemia, unspecified (9) Bilateral breast cancer Qualifiers: Qualified Code(s): C50.911 - Malignant neoplasm of unspecified site of right female breast; C50.912 - Malignant neoplasm of unspecified site of left female breast (11) Malnutrition Qualifiers: Malnutrition type: unspecified type Qualified Code(s): E46 - Unspecified protein-calorie malnutrition (14) Pneumonia Qualifiers: Pneumonia type: due to unspecified organism Laterality: bilateral Lung location: lower lobe of lung Qualified Code(s): J18.1 - Lobar pneumonia, unspecified organism
[2019-05-03] MEDS ORDERED: 0.9 % Sodium Chloride 500 ML IV ONE ×2 (10:04→12:03)
[2019-05-03] MEDS ORDERED: 0.9 % Sodium Chloride 500 ML IVC ONE (10:05)
--- NOTE | 2019-05-03 10:42 | Event Note ---
Date of Encounter: 05/03/19 Time of Encounter: 10:15 - Cardiology Event Note Attempted to discuss echo findings with patient, however patient is only responsive to painful stimuli at this time. BP hypotensive. Fluids being started by primary service. TTE with LVEF 60%, mild TR, 9mm by 4.5mm echogenic mass on t he anterior mitral valve leaflet, moderate-severe MR, no wall motion abnormalities noted. Per hospitalist, patient is being transferred to ICU for critical care. From cardiology standpoint, would recommend transfer to tertiary care facility for echogenic mass and moderate-severe MR. Discussed with .
[2019-05-03] MEDS ORDERED: 0.9 % Sodium Chloride 1,000 ML ONE (10:51)
[2019-05-03 10:59] LABS: ABG Base Excess -8 mEq/L (-2 to 3); ABG HCO3 21 mEq/L (21-27); ABG Oxygen Saturation 93 % (95-98); ABG PCO2 61 mmHg (35-45); ABG PH 7.15 pH Units (7.32-7.45); ABG PO2 89 mmHg (85-104); ABG TCO2 23 mEq/L (20-26)
[2019-05-03] MEDS: Folic Acid 1 MG TABLET PO SCH (10:59)
[2019-05-03] MEDS: Anastrozole 1 MG TABLET PO SCH (10:59)
[2019-05-03] MEDS: Thiamine (B-1) 100 MG TABLET PO SCH (11:00)
[2019-05-03] MEDS: Vitamin E 200 UNIT (90MG) CAPSULE PO SCH (11:00)
[2019-05-03] MEDS ORDERED: levoFLOXacin 750 MG/150 ML 750 MG/150 ML BAG IVPB SCH (11:02)
[2019-05-03] MEDS ORDERED: 0.9 % Sodium Chloride 1,000 ML IVC SCH ×2 (11:15→15:15)
[2019-05-03 11:33] LABS: Magnesium 1.6 mg/dL (1.6-2.6); Phosphorous 4.7 mg/dL (2.7-4.5); Potassium 5.1 mEq/L (3.5-5.1)
[2019-05-03] MEDS ORDERED: Ondansetron 4 MG/2 ML VIAL IVP PRN (12:03)
[2019-05-03] MEDS ORDERED: Naloxone 0.4 MG/ML INJ IVP PRN (12:03)
--- NOTE | 2019-05-03 13:46 | Pulmonology Consult Note ---
<Marcell Rodriguez - Last Filed: 05/03/19 22:02> Date of Encounter: 05/03/19 Time of Encounter: 13:46 Assessment and Plan (1) Acute respiratory failure with hypercapnia Status: Acute Currently oxygenating and ventilating well on BiPAP Plan to repeat ABG (2) Hypotension Status: Acute Likely related to malnutrition and dehydration Received 500mL IV fluids Will bolus 1L and continue maintenance fluids at rate of 100mL/hr Continue to monitor closely - may require pressor support. Has EPIV in place Qualifiers: Hypotension type: unspecified hypotension type Qualified Code(s): I95.9 - Hypotension, unspecified (3) Abnormal echocardiogram Status: Acute Cardiology recommended transfer to tertiary care facility for further evaluation of mitral valve mass seen on echo Palliative team discussed transfer with pt's POA Stephen who agreed to pursue transfer. [facility] transfer initiated by primary team. (4) Severe malnutrition Status: Acute tube feeds per nutrition and primary team (5) Failure to thrive Status: Acute as above Qualifiers: Failure to thrive age range: in adult Qualified Code(s): R62.7 - Adult failure to thrive (6) WENDY (acute kidney injury) Status: Resolved (7) Atrial fibrillation with rapid ventricular response Status: Acute Cardiology following (8) Anemia Status: Acute Qualifiers: Anemia type: unspecified type Qualified Code(s): D64.9 - Anemia, unspecified History of Present Illness Consult date: 05/03/19 Reason for consult: other Chief complaint: Weakness History of present illness: Ms Ribeiro is a 64F with PMH of breast cancer s/p bilateral mastectomy, oropharyngeal cancer s/p surgery, chemotherapy, and radiation. She was admitted on 04/26/19 for complaints of generalized weakness. Pt reported to have poor po intake. Pt denies any fever, chills, chest pain, shortness of breath, abdominal pain, or recent illnesses. In the ED pt was afebrile, but hypotensive. Labs revealed microcytic anemia, hyponatremia, hypokalemia, and an WENDY. She was given IV fluids. Her hospital stay was complicated by nausea and vomiting with tube feeds. The palliative team was consulted. Goals of care were established, and pt's ex- Stephen was appointed as POA by the pt. Overnight on 05/02 the pt went into Afib with RVR and cardiology was consulted. An echocardiogram was ordered which revealed normal EF but did show a 9mm by 4.5mm echogenic mass on the mitral valve with mitral valve regurgitation. Due to this finding cardiology recommended transfer to a tertiary care center. However on 05/03 when cardiology went to discuss these findings with the pt, she was found to be lethargic. An ABG was obtained which revealed pH of 7.19 with pCO2 of 61, and bicarb of 21. Pt was subsequently placed on BiPAP. She was then transferred to the ICU for continued lethargy and hypotension. Pt seen and examined at bedside in the ICU. She is resting comfortably on BiPAP. Will respond to verbal stimuli, but remains non-verbal at this time. Past Med Surg Social Fam HX - Past Medical History Medical history: cancer Additional medical history: LARYNGEAL CANCER, BREAST CANCER. SMOKER. CANCER TREATMENT Psychiatric history: anxiety - Past Surgical History Surgical History: no surgical history Additional surgical history: LEFT BREAST CYST EXCISION. G-TUBE. Bilateral Mastectomy - Social History Smoking Status: Current every day smoker Smokeless Tobacco Status: No Alcohol use: heavy Drug use: none - Family History Father Hx Family Cancer: Yes (Chest) Medications and Allergies Anastrozole [Arimidex] 1 mg PO DAILY #90 tablet 02/15/18 [Rx] Vitamin E (Dl,Tocopheryl Acet) [Vitamin E] 400 unit PO BID #60 cap 03/15/18 [Rx] Folic Acid 1 mg PO DAILY 09/18/18 [History] Omeprazole [PriLOSEC] 20 mg PO DAILY #30 capsule. 03/01/19 [Rx] Levothyroxine [Synthroid] 125 mcg PO DAILY@0630 #30 tablet 05/01/19 [Rx] Vitamin E 400 unit PO BID capsule 05/01/19 [Rx] Allergy/AdvReac Type Severity Reaction Status Date / Time No Known Allergies Allergy Verified 04/26/19 11:39 ROS unobtainable: due to mental status All Systems: The remainder of the systems were reviewed and are negative Physical Examination Vital Signs: Vital Signs, Last 4 Hours Temp Pulse Resp BP Pulse Ox 05/03/19 12:47 100 05/03/19 12:24 93.1 F L 104 05/03/19 12:18 105 19 74/63 05/03/19 10:40 23 100 General appearance: no acute distress, lethargic Eyes: nonicteric ENT: oropharynx dry Neck: no JVD Effort: normal Inspection: normal Auscultation: bilateral: clear Cardiovascular: other (tachycardic ) Gastrointestinal: soft, non-tender, other (PEG tube in place ) Integumentary: other (pale) unable to assess due to mental status Results - Laboratory Findings CBC and BMP: 05/03/19 06:59 05/03/19 14:10 ABG ABG pH 7.15 pH Units (7.32-7.45) L* 05/03/19 10:34 ABG pCO2 61 mmHg (35-45) H 05/03/19 10:34 ABG pO2 89 mmHg (85-104) 05/03/19 10:34 ABG O2 Saturation 93 % (95-98) L 05/03/19 10:34 Abnormal lab findings: Abnormal lab results RBC 2.43 M/mcL (3.82-4.97) L 05/03/19 06:59 Hgb 9.1 g/dL (11.5-15.4) L 05/03/19 06:59 Hct 27.1 % (35.3-44.9) L 05/03/19 06:59 MCV 111.5 fL (83.0-100.0) H 05/03/19 06:59 MCH 37.4 pg (28.0-33.3) H 05/03/19 06:59 Lymphocytes # 0.5 K/mcL (0.6-4.6) L 05/03/19 06:59 Anisocytosis 1+ (Not Present) A 05/01/19 14:23 Macrocytosis Present (Not Present) A 05/03/19 06:59 ABG pH 7.15 pH Units (7.32-7.45) L* 05/03/19 10:34 ABG pCO2 61 mmHg (35-45) H 05/03/19 10:34 ABG O2 Saturation 93 % (95-98) L 05/03/19 10:34 ABG Base Excess -8 mEq/L (-2 to 3) L 05/03/19 10:34 Sodium 135 mEq/L (136-145) L 04/30/19 03:36 Potassium 6.1 mEq/L (3.5-5.1) H 05/03/19 06:59 Chloride 109 mEq/L (98-107) H 05/03/19 06:59 Carbon Dioxide 18 mEq/L (23-29) L 05/03/19 06:59 BUN 30 mg/dL (8-23) H 05/03/19 06:59 Creatinine 1.34 mg/dL (0.60-1.20) H 04/30/19 03:36 Est GFR ( Amer) 48 (> 60) L 04/30/19 03:36 Est GFR (Non-Af Amer) 56 (> 60) L 05/02/19 04:11 BUN/Creatinine Ratio 32 (6-26) H 05/03/19 06:59 Glucose 127 mg/dL (70-105) H 05/03/19 06:59 POC Glucose 144 mg/dL (70-99) H 05/03/19 08:14 Calcium 8.2 mg/dL (8.6-10.3) L 05/03/19 06:59 Phosphorus 4.7 mg/dL (2.7-4.5) H 05/03/19 10:59 Ferritin 463 ng/mL (10-120) H 04/27/19 01:50 Serum Total Protein 4.7 g/dL (6.4-8.9) L 05/02/19 04:11 Albumin 1.8 g/dL (3.5-5.7) L 05/02/19 04:11 Albumin/Globulin Ratio 0.6 (1.1-2.2) L 05/02/19 04:11 TSH 41.982 mcIU/mL (0.340-5.600) H 04/30/19 03:36 Urine Bilirubin Small (Negative) H 04/28/19 13:50 - Diagnostic Findings Chest x-ray: report reviewed, image reviewed - Clinical Findings Intake & Output: Intake & Output 05/02/19 05/03/19 05/03/19 23:59 07:59 15:59 Intake Total 1500 / 3610.0 1000 / 2300 1300 / 2300 Output Total 0 / 0 Balance 1500 / 3610.0 1000 / 2300 1300 / 2300 Weight 52.7 kg Consult Discharge Plan - Plan Referrals: NONE,PCP [Primary Care Provider] - (ECF placement) Prescriptions: Levothyroxine [Synthroid] 125 mcg PO DAILY@629 #30 tablet <Yony Osei M - Last Filed: 05/04/19 01:36> Date of Encounter: 05/03/19 All Systems: The remainder of the systems were reviewed and are negative Physical Examination Vital Signs: Vital Signs, Last 4 Hours Temp Pulse Resp BP Pulse Ox 05/03/19 14:16 20 100 05/03/19 14:13 108 20 72/59 05/03/19 13:18 19 66/51 05/03/19 12:47 100 05/03/19 12:24 93.1 F L 104 05/03/19 12:18 105 19 74/63 Results - Laboratory Findings CBC and BMP: 05/03/19 06:59 05/03/19 14:10 ABG ABG pH 7.27 pH Units (7.32-7.45) L D 05/03/19 13:54 ABG pCO2 45 mmHg (35-45) 05/03/19 13:54 ABG pO2 114 mmHg (85-104) H 05/03/19 13:54 ABG O2 Saturation 98 % (95-98) 05/03/19 13:54 Abnormal lab findings: Abnormal lab results RBC 2.43 M/mcL (3.82-4.97) L 05/03/19 06:59 Hgb 9.1 g/dL (11.5-15.4) L 05/03/19 06:59 Hct 27.1 % (35.3-44.9) L 05/03/19 06:59 MCV 111.5 fL (83.0-100.0) H 05/03/19 06:59 MCH 37.4 pg (28.0-33.3) H 05/03/19 06:59 Lymphocytes # 0.5 K/mcL (0.6-4.6) L 05/03/19 06:59 Anisocytosis 1+ (Not Present) A 05/01/19 14:23 Macrocytosis Present (Not Present) A 05/03/19 06:59 ABG pH 7.27 pH Units (7.32-7.45) L D 05/03/19 13:54 ABG pCO2 61 mmHg (35-45) H 05/03/19 10:34 ABG pO2 114 mmHg (85-104) H 05/03/19 13:54 ABG O2 Saturation 93 % (95-98) L 05/03/19 10:34 ABG Base Excess -6 mEq/L (-2 to 3) L 05/03/19 13:54 VBG pH 7.21 pH Units (7.32-7.42) L 05/03/19 14:23 Sodium 135 mEq/L (136-145) L 05/03/19 14:10 Potassium 6.1 mEq/L (3.5-5.1) H 05/03/19 06:59 Chloride 112 mEq/L (98-107) H 05/03/19 14:10 Carbon Dioxide 18 mEq/L (23-29) L 05/03/19 06:59 BUN 28 mg/dL (8-23) H 05/03/19 14:10 Creatinine 1.34 mg/dL (0.60-1.20) H 04/30/19 03:36 Est GFR ( Amer) 48 (> 60) L 04/30/19 03:36 Est GFR (Non-Af Amer) 56 (> 60) L 05/02/19 04:11 BUN/Creatinine Ratio 32 (6-26) H 05/03/19 14:10 Glucose 125 mg/dL (70-105) H 05/03/19 14:10 POC Glucose 144 mg/dL (70-99) H 05/03/19 08:14 Calcium 7.9 mg/dL (8.6-10.3) L 05/03/19 14:10 Phosphorus 4.7 mg/dL (2.7-4.5) H 05/03/19 10:59 Ferritin 463 ng/mL (10-120) H 04/27/19 01:50 Serum Total Protein 4.7 g/dL (6.4-8.9) L 05/02/19 04:11 Albumin 1.8 g/dL (3.5-5.7) L 05/02/19 04:11 Albumin/Globulin Ratio 0.6 (1.1-2.2) L 05/02/19 04:11 TSH 41.982 mcIU/mL (0.340-5.600) H 04/30/19 03:36 Urine Bilirubin Small (Negative) H 04/28/19 13:50 - Clinical Findings Intake & Output: Intake & Output 05/02/19 05/03/19 05/03/19 23:59 07:59 15:59 Intake Total 1500 / 3610.0 1000 / 2300 1300 / 2300 Output Total 0 / 0 Balance 1500 / 3610.0 1000 / 2300 1300 / 2300 Weight 52.7 kg - Attending Attestation I examined this patient and my medical decision-making was reviewed with the Resident Physician. I agree with the documented findings, disposition and treatment plan as described except to the extent set forth below. Patient seen and examined. I was called by the hospitalist to evaluate this patient that she has decompensation in 2A and she was transferred to the ICU Labs, radiology, chart personally reviewed. Agree with resident's history and physical, assessment, plan with following comments: BALLISTICIAN: Patient follows commands, She became more alert on NIV and patient is lethargic. Pulmonary: Acceptable oxygenation and ventilation on NIV, however she is at risk her condition could deteriorate and she may need invasive mechanical ventilation, which will be a very challenging situation because of her history.and she will need anesthesia or ENT for intubation. Cardiovascular: Patient is in shock and she will need pressors to stablize her BP especially for transportation. Discussed with cardiology team and she will be transferred to [facility] for further management. GI: Nutrition per dietary and GI prophylaxis per routine. Patient with severe protein-calorie malnutrition and that makes her prognosis even worse. Heme: DVT prophylaxis per routine ID: Continue antibiotics and plan to de-escalation. She might be septic and I feel she is volume depleted. It is difficult to give her more fluid that might make her breathing worse. Renal; urine out put and renal function reviewed. Follow up ABG shows some improvement. Endorcine: blood glucose is monitored Lines: all lines checked and no evidence of infections Skin: skin care to prevent pressure ulcers per nursing routine care Dispo: transfer to [facility] Code: Full. Prognosis.extremely poor and patient remain full code. Palliative is following up. I spent 35 min of Critical Care time with this patient. It involved decision making of high complexity to assess, manipulate, and support vital organ system failure and/or to prevent further life threatening deterioration of the patient's condition. The time involved in the performance of separately reportable procedures was not counted toward critical care time.
[2019-05-03 13:57] LABS: ABG Base Excess -6 mEq/L (-2 to 3); ABG HCO3 21 mEq/L (21-27); ABG Oxygen Saturation 98 % (95-98); ABG PCO2 45 mmHg (35-45); ABG PH 7.27 pH Units (7.32-7.45); ABG PO2 114 mmHg (85-104); ABG TCO2 22 mEq/L (20-26); Blood Gas Modality AVAPS; Blood Gas PEEP 5 cm H2O; Blood Gas VT 400 cc
[2019-05-03 14:27] LABS: VBG PH 7.21 pH Units (7.32-7.42)
--- NOTE | 2019-05-03 14:36 | Palliative Progress Note ---
Date of Encounter: 05/03/19 Time of Encounter: 13:50 - Assessment and plan (1) Counseling regarding goals of care Current Visit: Yes Status: Acute Assessment and plan: Patient transferred to ICU after ARF and hypotension. Patient TTE revealed LVEF 60%, mild TR, 9mm by 4.5mm echogenic mass on the anterior mitral valve leaflet, moderate-severe MR, no wall motion abnormalities noted. Conducted 15 minute meeting with POA Stephen. Stephen is patients ex- and appointed POA per DPOA forms. Explained pathophysiology of cardiac function and provided picture of mitral valve and explained how mass on leaflet impacts cardiac output and function. Explained that Cardiology recommended transfer to tertiary care facility for echogenic mass and moderate-severe MR. Stephen desires to have patient transferred to obtain second opinion. Case discussed with Dr. Rodriguez and Dr. Osei. Patient currently stable: HR 109, 72/59, MAP 66. Bipap 50% FiO2 with sats 100%. Patient remains FULL CODE. (2) Severe malnutrition Current Visit: Yes Status: Acute Assessment and plan: Dietary following: TF: Osmolite 1.2 @45 ml/hr goal - 1.08L total volume, 1296 kcal, 60 gm PRO PO nutrition: continue regular diet Supplement: Ensure Enlive Salas/Straw BID (3) Palliative care encounter Current Visit: Yes Status: Acute (4) Acute respiratory failure with hypoxia Current Visit: Yes Status: Acute Assessment and plan: Remains on Bipap. Supplemental O2 HOB up Awaiting transfer to [facility] - Time Spent With Patient Total time spent is greater than 50% in coordination of care (as documented) at patient's floor/unit and/or counseling patient: Greater than 35 minutes - Subjective Interval history: Patient with episode of SOB and Dyspnea. Transfered to ICU for close monitoring. TTE with LVEF 60%, mild TR, 9mm by 4.5mm echogenic mass on the anterior mitral valve leaflet, moderate-severe MR, no wall motion abnormalities noted. Patient placed on Bipap. Palliative care called to discuss goals of care with family in the setting of new TTE findings. Case discussed with Dr. Rodriguez. - Constitutional Vitals: Abnormal lab results RBC 2.43 M/mcL (3.82-4.97) L 05/03/19 06:59 Hgb 9.1 g/dL (11.5-15.4) L 05/03/19 06:59 Hct 27.1 % (35.3-44.9) L 05/03/19 06:59 MCV 111.5 fL (83.0-100.0) H 05/03/19 06:59 MCH 37.4 pg (28.0-33.3) H 05/03/19 06:59 Lymphocytes # 0.5 K/mcL (0.6-4.6) L 05/03/19 06:59 Anisocytosis 1+ (Not Present) A 05/01/19 14:23 Macrocytosis Present (Not Present) A 05/03/19 06:59 ABG pH 7.27 pH Units (7.32-7.45) L D 05/03/19 13:54 ABG pCO2 61 mmHg (35-45) H 05/03/19 10:34 ABG pO2 114 mmHg (85-104) H 05/03/19 13:54 ABG O2 Saturation 93 % (95-98) L 05/03/19 10:34 ABG Base Excess -6 mEq/L (-2 to 3) L 05/03/19 13:54 VBG pH 7.21 pH Units (7.32-7.42) L 05/03/19 14:23 Sodium 135 mEq/L (136-145) L 04/30/19 03:36 Potassium 6.1 mEq/L (3.5-5.1) H 05/03/19 06:59 Chloride 109 mEq/L (98-107) H 05/03/19 06:59 Carbon Dioxide 18 mEq/L (23-29) L 05/03/19 06:59 BUN 30 mg/dL (8-23) H 05/03/19 06:59 Creatinine 1.34 mg/dL (0.60-1.20) H 04/30/19 03:36 Est GFR ( Amer) 48 (> 60) L 04/30/19 03:36 Est GFR (Non-Af Amer) 56 (> 60) L 05/02/19 04:11 BUN/Creatinine Ratio 32 (6-26) H 05/03/19 06:59 Glucose 127 mg/dL (70-105) H 05/03/19 06:59 POC Glucose 144 mg/dL (70-99) H 05/03/19 08:14 Calcium 8.2 mg/dL (8.6-10.3) L 05/03/19 06:59 Phosphorus 4.7 mg/dL (2.7-4.5) H 05/03/19 10:59 Ferritin 463 ng/mL (10-120) H 04/27/19 01:50 Serum Total Protein 4.7 g/dL (6.4-8.9) L 05/02/19 04:11 Albumin 1.8 g/dL (3.5-5.7) L 05/02/19 04:11 Albumin/Globulin Ratio 0.6 (1.1-2.2) L 05/02/19 04:11 TSH 41.982 mcIU/mL (0.340-5.600) H 04/30/19 03:36 Urine Bilirubin Small (Negative) H 04/28/19 13:50 - Head Head exam: Present: atraumatic - Eye Eye exam: Present: PERRL - ENT ENT exam: Present: mucous membranes moist - Respiratory Respiratory exam: Present: decreased breath sounds - Expanded Respiratory Exam Location: decreased breath sounds: Left, Right, Lower - Cardiovascular Cardiovascular exam: Present: RRR, +S1, +S2, tachycardia - GI/Abdominal GI/Abdominal exam: Present: normal bowel sounds, soft Additional comments: PEG tube in place. Feediings at 30ml/hr. - Additional comments: Attends in place - Extremities Exam Extremities exam: Present: pedal edema (2+ pedal edema) - Neurological Exam Neurological exam: Present: altered (Patient on Bipap, unable to participate in discussion. MAHIN Mitchell at bedside) - Psychiatric Psychiatric exam: Present: flat affect - Skin Skin exam: Present: pallor (Dileep hugger on), warm Palliative Quality Palliative Quality: Screen for Code Status: NA (Awaiting family for goals of care discussion), Screen for Goals of Care: NA, Screen for Pain: Yes, If Pain Regimen Started, Initiate Bowel Regimen: NA, Screen for Nausea/Vomitting: Yes Code Status: 04/26/19 17:42 Resuscitation Status: Active [RES] Routine Comment: Resuscitation Status: Full Code - Labs CBC & Chem 7: 05/03/19 06:59 05/03/19 10:59 Labs: Laboratory Results - last 24 hr 05/02/19 05/02/19 05/02/19 11:09 17:12 18:56 WBC RBC Hgb Hct MCV MCH MCHC RDW Plt Count MPV Immature Gran % Seg Neutrophils % Lymphocytes % Monocytes % Eosinophils % Basophils % Neutrophils # Lymphocytes # Monocytes # Eosinophils # Basophils # Platelet Estimate Macrocytosis ABG pH ABG pCO2 ABG pO2 ABG HCO3 ABG Total CO2 ABG O2 Saturation ABG Base Excess VBG pH Respiration Rate O2 Delivery Device Blood Gas Modality Inspired O2 Tidal Volume PEEP Sodium Potassium Chloride Carbon Dioxide BUN Creatinine Est GFR ( Amer) Est GFR (Non-Af Amer) BUN/Creatinine Ratio Glucose POC Glucose 165 H 157 H 185 H Calculated Osmolality Lactic Acid Calcium Venous Ioniz Calcium Phosphorus Magnesium Nasal Screen MRSA (PCR) Person Notif of Crit 05/03/19 05/03/19 05/03/19 04:42 06:59 06:59 WBC 9.4 D RBC 2.43 L Hgb 9.1 L Hct 27.1 L MCV 111.5 H MCH 37.4 H MCHC 33.6 RDW 14.4 Plt Count 183 MPV 12.2 Immature Gran % 0.4 Seg Neutrophils % 84.1 Lymphocytes % 5.0 Monocytes % 10.5 Eosinophils % 0.0 Basophils % 0.0 Neutrophils # 7.9 Lymphocytes # 0.5 L Monocytes # 1.0 Eosinophils # 0.0 Basophils # 0.0 Platelet Estimate Normal Macrocytosis Present A ABG pH ABG pCO2 ABG pO2 ABG HCO3 ABG Total CO2 ABG O2 Saturation ABG Base Excess VBG pH Respiration Rate O2 Delivery Device Blood Gas Modality Inspired O2 Tidal Volume PEEP Sodium 139 Potassium 6.1 H Chloride 109 H Carbon Dioxide 18 L BUN 30 H Creatinine 0.94 Est GFR ( Amer) > 60 Est GFR (Non-Af Amer) 60 BUN/Creatinine Ratio 32 H Glucose 127 H POC Glucose 142 H Calculated Osmolality 296 Lactic Acid Calcium 8.2 L Venous Ioniz Calcium Phosphorus Magnesium Nasal Screen MRSA (PCR) Person Notif of Crit 05/03/19 05/03/19 05/03/19 08:14 10:34 10:59 WBC RBC Hgb Hct MCV MCH MCHC RDW Plt Count MPV Immature Gran % Seg Neutrophils % Lymphocytes % Monocytes % Eosinophils % Basophils % Neutrophils # Lymphocytes # Monocytes # Eosinophils # Basophils # Platelet Estimate Macrocytosis ABG pH 7.15 L* ABG pCO2 61 H ABG pO2 89 ABG HCO3 21 ABG Total CO2 23 ABG O2 Saturation 93 L ABG Base Excess -8 L VBG pH Respiration Rate O2 Delivery Device Oxy Mask Blood Gas Modality Inspired O2 15.0 Tidal Volume PEEP Sodium Potassium Chloride Carbon Dioxide BUN Creatinine Est GFR ( Amer) Est GFR (Non-Af Amer) BUN/Creatinine Ratio Glucose POC Glucose 144 H Calculated Osmolality Lactic Acid 1.5 Calcium Venous Ioniz Calcium Phosphorus Magnesium Nasal Screen MRSA (PCR) Person Notif of Crit [email or web address] 05/03/19 05/03/19 05/03/19 10:59 11:21 13:54 WBC RBC Hgb Hct MCV MCH MCHC RDW Plt Count MPV Immature Gran % Seg Neutrophils % Lymphocytes % Monocytes % Eosinophils % Basophils % Neutrophils # Lymphocytes # Monocytes # Eosinophils # Basophils # Platelet Estimate Macrocytosis ABG pH 7.27 L D ABG pCO2 45 ABG pO2 114 H ABG HCO3 21 ABG Total CO2 22 ABG O2 Saturation 98 ABG Base Excess -6 L VBG pH Respiration Rate 14 O2 Delivery Device BiPAP Blood Gas Modality AVAPS Inspired O2 50.0 Tidal Volume 400 PEEP 5 Sodium Potassium 5.1 Chloride Carbon Dioxide BUN Creatinine Est GFR ( Amer) Est GFR (Non-Af Amer) BUN/Creatinine Ratio Glucose POC Glucose Calculated Osmolality Lactic Acid Calcium Venous Ioniz Calcium Phosphorus 4.7 H Magnesium 1.6 Nasal Screen MRSA (PCR) NOT DETECTED Person Notif of Crit 05/03/19 14:23 WBC RBC Hgb Hct MCV MCH MCHC RDW Plt Count MPV Immature Gran % Seg Neutrophils % Lymphocytes % Monocytes % Eosinophils % Basophils % Neutrophils # Lymphocytes # Monocytes # Eosinophils # Basophils # Platelet Estimate Macrocytosis ABG pH ABG pCO2 ABG pO2 ABG HCO3 ABG Total CO2 ABG O2 Saturation ABG Base Excess VBG pH 7.21 L Respiration Rate O2 Delivery Device Blood Gas Modality Inspired O2 Tidal Volume PEEP Sodium Potassium Chloride Carbon Dioxide BUN Creatinine Est GFR ( Amer) Est GFR (Non-Af Amer) BUN/Creatinine Ratio Glucose POC Glucose Calculated Osmolality Lactic Acid Calcium Venous Ioniz Calcium 1.30 Phosphorus Magnesium Nasal Screen MRSA (PCR) Person Notif of Crit - Impressions Impressions Echocardiogram 05/02/19 13:10 Impressions: LVEF 60%. Normal LV chamber size, wall thickness and systolic function. The right ventricule was not well evaluated Mild tricuspid regurgitation. No evidence of pulmonary hypertension. There is a 9mm by 4.5mm echogenic mass on the left ventricular side of the anterior mitral valve leaflet. Clinical correlation is recommended. Moderate-severe eccentric mitral regurgitation. Findings communicated with covering hospitalist Left Ventricular Wall Motion: Rest Echo Findings All wall segments showed normal motion. Findings: Study Quality * Technically sub-optimal due to poor echocardiographic windows. ECG Findings * Sinus tachycardia. Left Ventricle * LVEF 60%. * Indeterminate diastolic function. * Normal LV chamber size, wall thickness and systolic function. Right Ventricle * The right ventricule was not well evaluated Left Atrium * Mildly dilated left atrium. Right Atrium * Normal right atrial size. Interatrial Septum * Interatrial septum not well evaluated. Aortic Valve * Aortic valve not well visualized. * No aortic regurgitation. * No aortic stenosis. Mitral Valve * Moderate-severe mitral regurgitation. * No mitral stenosis. * There is a 9mm by 4.5mm echogenic mass on the left ventricular side of the anterior mitral valve leaflet. Clinical correlation is recommended. Tricuspid Valve * Mild tricuspid regurgitation. * No tricuspid stenosis. * No evidence of pulmonary hypertension. Pulmonic Valve * Pulmonic valve not well visualized. Aorta * Normally sized aortic root. Pericardium * The pericardium appears normal. IVC * Normal IVC dimensions and inspiratory collapse. Pulmonary Artery * Pulmonary artery not well visualized. Chest X-Ray 05/03/19 10:23 IMPRESSION: New bilateral pleural effusions, right larger than left. New dense opacities to the bilateral lower lung zones, right worse than left, likely relating to the pleural effusions and/or superimposed atelectasis or infiltrates. New mild patchy/hazy airspace opacities bilaterally likely relating to layering of the pleural fluid although superimposed lung parenchymal opacities to include multifocal infiltrates or pulmonary edema not excluded. D/ / 05/03/2019 10:53:15 Ryne Dee MD / [email or web address] Interpreting Provider: Ryne Dee MD - ABG Interpretation ABG results: ABG ABG pH 7.27 pH Units (7.32-7.45) L D 05/03/19 13:54 ABG pCO2 45 mmHg (35-45) 05/03/19 13:54 ABG pO2 114 mmHg (85-104) H 05/03/19 13:54 ABG O2 Saturation 98 % (95-98) 05/03/19 13:54 Consult Discharge Plan - Plan Referrals: NONE,PCP [Primary Care Provider] - (ECF placement) Prescriptions: Levothyroxine [Synthroid] 125 mcg PO DAILY@0630 #30 tablet
[2019-05-03 14:52] LABS: BUN/Creatinine Ratio 32 (6-26); Blood Urea Nitrogen 28 mg/dL (8-23); Calcium 7.9 mg/dL (8.6-10.3); Carbon Dioxide 23 mEq/L (23-29); Chloride 112 mEq/L (98-107); Glucose 125 mg/dL (70-105); Osmolality,Calculated 287 (280-300); Potassium 5.1 mEq/L (3.5-5.1); Sodium 135 mEq/L (136-145); eGFR For African Americans > 60 (> 60); eGFR For Non-African Americans > 60 (> 60)
[2019-05-03 16:07] LABS: Potassium,Urine 27.3 mEq/L; Sodium, Urine 16.8 mEq/L
[2019-05-03] MEDS ORDERED: *HR* Heparin 5,000 UNIT/ML VIAL SQ SCH (18:00)
--- NOTE | 2019-05-03 18:04 | Discharge Summary ---
Date of Encounter: 05/03/19 Time of Encounter: 18:01 - Discharge Diagnosis (1) Acute respiratory failure with hypoxia Priority: Primary Status: Acute (2) Bilateral pleural effusion Priority: Secondary Status: Acute (3) High anion gap metabolic acidosis Priority: Secondary Status: Acute (4) Atrial fibrillation with rapid ventricular response Priority: Secondary Status: Acute (5) Failure to thrive Priority: Secondary Status: Acute Qualifiers: Failure to thrive age range: in adult Qualified Code(s): R62.7 - Adult fa ilure to thrive (6) Oropharyngeal cancer Priority: Secondary Status: Chronic (7) Dehydration Priority: Secondary Status: Acute (8) Anemia Priority: Secondary Status: Acute Qualifiers: Anemia type: unspecified type Qualified Code(s): D64.9 - Anemia, unspecified (9) Bilateral breast cancer Priority: Secondary Status: Chronic Qualifiers: Qualified Code(s): C50.911 - Malignant neoplasm of unspecified site of right female breast; C50.912 - Malignant neoplasm of unspecified site of left female breast (10) Hypokalemia Priority: Secondary Status: Resolved (11) Malnutrition Priority: Secondary Status: Acute Qualifiers: Malnutrition type: unspecified type Qualified Code(s): E46 - Unspecified protein-calorie malnutrition (12) WENDY (acute kidney injury) Priority: Secondary Status: Resolved (13) Sepsis due to pneumonia Priority: Secondary Status: Acute (14) Pneumonia Priority: Secondary Status: Acute Qualifiers: Pneumonia type: due to unspecified organism Laterality: bilateral Lung location: lower lobe of lung Qualified Code(s): J18.1 - Lobar pneumonia, unspecified organism Hospital course: Ms. Ribeiro is a 64 year old female was initially admitted for the management of severe malnutrition and failure to thrive. She has a history of left breast cancer with mastectomy and oropharyngeal cancer post chemotherapy and surgery. Her hospital stay became complicated with A. fib with RVR, hypoxic respiratory failure secondary to bilateral pleural effusions, pneumonia, sepsis and severe metabolic acidosis. 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 Patient is currently in the ICU but will be transferred to [facility] as soon as bed becomes available Discharge discussed with: patient, family, nurse, loans consultant - Time Spent with Patient Total time spent providing and/or coordinating discharge services: Time spent: Greater than 30 minutes (45) - Discharge Medications Prescriptions: New Levothyroxine [Synthroid] 125 mcg PO DAILY@0630 #30 tablet Vitamin E 400 unit PO BID capsule Continued Anastrozole [Arimidex] 1 mg PO DAILY #90 tablet Vitamin E (Dl,Tocopheryl Acet) [Vitamin E] 400 unit PO BID #60 cap Folic Acid 1 mg PO DAILY Omeprazole [PriLOSEC] 20 mg PO DAILY #30 capsule. Discontinued Levothyroxine [Synthroid] 75 mcg PO DAILY #30 tablet Home Medications: Anastrozole [Arimidex] 1 mg PO DAILY #90 tablet 02/15/18 [Rx] Vitamin E (Dl,Tocopheryl Acet) [Vitamin E] 400 unit PO BID #60 cap 03/15/18 [Rx] Folic Acid 1 mg PO DAILY 09/18/18 [History] Omeprazole [PriLOSEC] 20 mg PO DAILY #30 capsule. 03/01/19 [Rx] Levothyroxine [Synthroid] 125 mcg PO DAILY@0630 #30 tablet 05/01/19 [Rx] Vitamin E 400 unit PO BID capsule 05/01/19 [Rx] Allergies/Adverse Reactions: Allergy/AdvReac Type Severity Reaction Status Date / Time No Known Allergies Allergy Verified 04/26/19 11:39 Date of admission: 04/26/19 19:05 Primary care physician: PCP NONE Consults: 04/26/19 20:22 Consult to Nutrition [CONS] Routine Comment: Consulting Provider: NUTRITION Reason for Dietary Consult: Diet Education 04/26/19 21:28 Consult to Nutrition [CONS] Routine Comment: Consulting Provider: NUTRITION Reason for Dietary Consult: Diet Education 04/27/19 11:21 Consult to Nutrition [CONS] Routine Comment: Consulting Provider: NUTRITION Reason for Dietary Consult: Tube Feed Start & Manage 04/28/19 13:23 Consult to Palliative Care [CONS] Routine Comment: Consulting Provider: Palliative Care Jackie Reason for Consult: Patient with hx of cancer, failure to thrive, not eating. Discuss goals of care and possible hospice options. Call Completed: No 04/29/19 15:01 Consult to Occupational Therapy [CONS] Routine Comment: Evaluate, develop and implement POC Reason for Consult: evaluate the need for skilled placement Does patient have active BEDREST order?: No Is patient medically & hemodynamically stable?: Yes Consult to Physical Therapy [CONS] Routine Comment: Evaluate, develop and implement POC Reason for Consult: Evaluation for skilled Does patient have active BEDREST order?: No Is patient medically & hemodynamically stable?: Yes 04/30/19 07:51 Consult to Mangle Catcher [CONS] Routine Reason for SW Consult: poss ecf vs hh, alcohol abuse 05/02/19 12:36 Consult to Cardiology [CONS] Routine Comment: Consulting Provider: Cardiology Jackie Reason for Consult: Afib with RVR. hypotension Call Completed: Yes 05/03/19 13:45 Consult to Critical Care [CONS] Routine Consulting Provider: [facility]m [facility] Reason for Consult: Acute hpoxia 2/2 bilateral effusions and possible pneumonia. Concerns for sepsis with hypotension. Call Completed: Yes - Constitutional Vitals: Temp Pulse Resp BP Pulse Ox 36.2 C L 114 26 104/71 100 05/03/19 17:17 05/03/19 17:23 05/03/19 17:23 05/03/19 17:23 05/03/19 14:16 General appearance: Present: cachectic, A&O X 3 Exam: Patient is currently more awake than she was earlier. She continues to be on BiPAP. - Patient Status Disposition: Transfer Critical Access Hosp Condition: Critical Functional capacity at discharge: bed bound Overall status at discharge: patient is not back to baseline - Discharge Instructions Follow Up With: NONE,PCP [Primary Care Provider] - (ECF placement)
[2019-05-03] MEDS ORDERED: Vitamin E 200 UNIT (90MG) CAPSULE PO SCH (21:00)
[2019-05-03] MEDS ORDERED: Norepinephrine 4 MG in D5% in Water 250 ML IVC SCH (21:15)
[2019-05-03 22:05] VITALS: BP 89/73
[2019-05-04] MEDS ORDERED: Anastrozole 1 MG TABLET PO SCH (09:00)
[2019-05-04] MEDS ORDERED: Thiamine (B-1) 100 MG TABLET PO SCH (09:00)
[2019-05-04] MEDS ORDERED: Folic Acid 1 MG TABLET PO SCH (09:00)
== END 2019-05-03 23:15 | disposition critical access hospital (66) | DRG 682 ==
LOC: SUATTDRO → EMEROOARM 12:40 → 2NNU 12:40 → OBSVTOIN 19:05 → SUATTDRO 19:05 → 2NNU 19:53 → 2ANU 04-29 16:03 → ICNU 05-03 11:41
PROVIDERS: ADMIT Internal Medicine; ATTEND Internal Medicine